=== PATIENT | female | born 1960 | race Asian ===

== ENCOUNTER 2024-09-08 13:58 | Inpatient (IN) | payer BC, SELFPAY ==
[2024-09-07] VITALS (19 sets, daily range): BP systolic 123–197; BP diastolic 70–126; PULSE 75
[2024-09-07 09:18] LABS: Urine Albumin Negative (Neg - Trace); Urine Bilirubin Negative (Negative); Urine Character Clear (Clear); Urine Color Yellow; Urine Glucose Negative (Negative); Urine Ketone Negative (Negative); Urine Leukocyte Negative (Negative); Urine Nitrite Negative (Negative); Urine Occult Blood Negative (Negative); Urine Specific Gravity 1.005 (<1.030); Urine Urobilinogen Negative (Neg - 1+)
[2024-09-07 09:24] LABS: % Basophils 1.2 % (0-2); % Eosinophils 1.9 % (0-6); % Immature Granulocytes 0.3 % (0-0.5); % Neutrophils 70.6 % (42.2-75.2); Absolute Basophils 0.1 10^3/uL (0-0.2); Absolute Eosinophils 0.2 10^3/uL (0-0.7); Absolute Monocytes 0.5 10^3/uL (0.1-0.6); Absolute Neutrophils 6.6 10^3/uL (1.4-6.5); Hemoglobin 14.5 g/dL (12.0-16.0); Mean Corp Hgb Conc. 33.7 g/dL (33.0-37.0); Mean Corpuscular Hgb 31.3 pg (27.0-31.0); Mean Corpuscular Volume 92.7 fL (81.0-99.0); Mean Platelet Volume 9.7 fL (7.4-10.4); Nucleated Red Blood Cells % 0 %; Platelet Count 245 10^3/uL (130-400); Red Blood Cell Count 4.64 10^6/uL (4.20-5.40); Red Cell Dist. Width 12.5 % (11.5-14.5); White Blood Cell Count 9.3 10^3/uL (4.8-10.8)
[2024-09-07 09:36] LABS: Blood Urea Nitrogen 13 mg/dl (7-17); Calcium 9.5 mg/dl (8.4-10.2); Carbon Dioxide 23 mmol/L (22-30); Chloride 107 mmol/L (98-107); Glucose 112 mg/dl (70-99); Sodium 141 mmol/L (135-145); eGFR > 60.00
[2024-09-07 09:44] LABS: Troponin I < 0.012 ng/ml
--- NOTE | 2024-09-07 10:17 | ED.GENMED ---
History of Present Illness
General
Chief Complaint: Dizziness
Source: patient
Exam Limitations: none
Time Seen by Provider: 09/07/24 09:47
Nursing documentation reviewed up to this point in time: agreed with
History of Present Illness
History of Present Illness:
64-year-old female presenting to the emergency department today with concerns of 3 days of intermittent room spinning dizziness that proceeded an upper respiratory infection she had over the past week or so. Denies any chest pain shortness of
breath symptoms improved when sitting still. Has been able to walk and went off balance when doing so. Denies similar symptoms in the past. No numbness weakness neck pain.
Review of Systems
Review of Systems
Allergies reviewed?: Yes
All Other Systems: ROS reviewed and negative except as documented in HPI and ROS
Phy Exam
Physical Exam
Physical Exam:
GENERAL: Alert , in no apparent distress
EYE: pupils equal and reactive
NECK: Supple, no significant adenopathy.
ENT: o/p clr, mmm.
CARDIAC: Regular rate and rhythm .
LUNGS: Clear breath sounds bilaterally, no acute respiratory distress, no wheezes/rales/rhonchi
ABDOMEN: Soft, without focal tenderness, no r/g, no cvat
NEUROLOGICAL: Alert and oriented, no focal neuro deficits 5 out of 5 upper and lower extremity strength normal finger-nose and [id number] no pronator drift. No nystagmus
SKIN: Warm and dry, skin intact.
MUSCULOSKELETAL: No edema, well perfused.
PSYCH: Normal and appropriate interaction.
Course
Orders/Labs/Results
Orders:
Orders
09/07/24 09:02
Electrocardiogram (*1) Urgent
Reason for Study: Chest Pain
EKG- Treatment ONCE
09/07/24 09:04
Basic Metabolic Panel Urgent
Complete Blood Count/With Diff Urgent
Troponin I Urgent
Urinalysis Reflex To Culture Urgent
Date Specimen was Collected: 09/07/24
Time Specimen was Collected: 09:03
09/07/24 10:15
Meclizine [Antivert] 25 mg PO NOW STA
Pt Eval And Treat Urgent
Activity Level: Ambulate
09/07/24 12:23
CT Head W/o Iv Contrast Urgent
Comment:
Reason For Exam: left sided coordination issues
09/07/24 12:37
Labetalol HCl [Trandate] 10 mg IV NOW STA
09/07/24 15:13
Aspirin 325 mg PO NOW STA
Clopidogrel Bisulfate [Plavix] 300 mg PO NOW STA
Abnormal Lab Results
09/07/24
09:04
MCH 31.3 H pg
(27.0-31.0)
Absolute Neuts (auto) 6.6 H 10^3/uL
(1.4-6.5)
Creatinine 0.5 L mg/dL
(0.6-1.0)
Glucose 112 H mg/dl
(70-99)
09/07/24 09:04
09/07/24 09:04
Vital Signs
Initial and Last Documented VS:
Initial Vital Signs
Pulse Resp Pulse Ox
82 18 98
09/07/24 08:59 09/07/24 08:59 09/07/24 08:59
Last Documented Vital Signs
Pulse Resp BP Pulse Ox
62 16 123/77 97
09/07/24 13:15 09/07/24 13:15 09/07/24 13:15 09/07/24 13:15
MDM/Problems Addressed
MDM/Problems Addressed:
64-year-old female presenting to the emergency department today with concerns of room spinning dizziness only with ambulation intermittently over the past 3 days symptoms improved at rest did have an upper respiratory symptom week. On arrival vital
signs are normal patient in no distress at rest no reproducible nystagmus normal labs normal urinalysis. EKG without specific emergent findings. Patient able to stand up walk go to the bathroom get changed on her own without assistance.
*Critical Care Note
Total Time (30-74mins, 75-104mins- exclusive of procedures): Not Applicable
Update Note
Update Note:
1500: Patient reassessed after meclizine and rest claims to still have the feelings of being off balance and trouble with coordination she was reexamined with the left upper extremity had some difficulty with [id number] compared to the right
this has been present the same timeframe of feeling off balance concerning this plan to discuss with neurology for potential additional assessment acutely.
Case discussed with neuro they recommend MRI MRI patient will be admitted loading dose of Plavix given as well as aspirin
ED Attending Note
-
Portions of this chart may have been created with voice recognition software.� Occasional wrong word or��sound alike� substitutions may have occurred due to the inherent limitations of voice recognition software.
Discharge Plan
Departure
Patient Disposition: Admit
Date of Disposition: 09/07/24
Time of Disposition: 15:23
Admit to: Telemetry
Admit to doctor: Chloéy
Presentation/result/management discussed w/ accepting MD/DO: Hospitalist
Patient with high blood pressure during this ER visit?: No
Condition: Fair
Covid-19: Not Applicable
Discharge Problem:
Ataxia
Referrals:
NONE,* [Family Provider] -
Interventions
Interventions:
*Risk Screen - Suicide Last Done: 09/07/24 11:33
*General Assessment Last Done: 09/07/24 11:33
*Neglect/Abuse Screening Last Done: 09/07/24 11:33
*ED COVID-19 Vaccine History Last Done: 09/07/24 11:33
ED- Neurological Assessment Last Done: 09/07/24 11:33
ED- Cardiac Assessment Last Done: 09/07/24 11:33
ED Swallowing Screen Last Done: 09/07/24 11:00
Discharge Date and Time
Print Language: ARABIC
[2024-09-07] MEDS: ANTIVERT 25 MG PO (11:05)
[2024-09-07] MEDS: TRANDATE 10 MG IV (12:45)
--- NOTE | 2024-09-07 15:37 | HPS.HSE ---
Addendum entered and electronically signed by Roshan Wheeler MD 09/07/24 16:17:
I saw and examined the patient.
The TAN ROOM SUPERVISOR or PA's note was reviewed and I agree with the note.
Comment:
64F Rt handed , current smoker No PMH pw slurred speech, balance dysfunction:
Further eval suggestive of
Ataxia, high clinical concern for posterior circulation stroke
- Brain MRI with Head/Neck MRA
- Start DAPL
- Start atorvastatin
- Check FLP an HgbA1c
- Neuro consult
Uncontrolled Hypertension/ HTN encephalopathy - reolved n
- BP improved after dose of labetalol given in ED
- Continue hydralazine PRN
- Permissive BP goal up to 165/100
Current smoker
- cessation of smoking strongly advised
DVT proph: SCDs
Code Status: Full Code
IP TLM
Original Note:
Family Physician
-
Family Physician: * NONE
Chief Complaint
-
Difficulty Walking
History of Present Illness
Patient is a 64 y/o female with no known past medical history who presents with difficulty walking x 3 days. Patient reports when she walks she 'walks like she's drunk'. Her roommate noted yesterday that her speech seems a little different than
usual. She denies focal numbness, tingling or weakness.
Medical History
Past Medical History
Past Medical History: Reports None
Past Surgical History: Reports None
Social History
Tobacco: Smoker (1 PPD)
Alcohol: Occasional
Family History
Family History: Not pertinent
Allergies / Home Medications
Allergies reflects when Allergies were last updated in [employer].
Home Medications with original date entered in [employer]
Allergy/Medication List:
Allergies
Allergy/AdvReac Type Severity Reaction Status Date / Time
No Known Allergies Allergy Unverified 09/07/24 09:00
Home Medications
cholecalciferol (vitamin D3) 25 mcg (1,000 unit) tablet (Vitamin D3) 25 mcg PO DAILY 09/07/24
cyanocobalamin (vitamin B-12) 1,000 mcg tablet 1,000 mcg PO DAILY 09/07/24
magnesium oxide 400 mg PO DAILY 09/07/24
Review of Systems
-
A 12 point ROS was completed and negative except as noted: Yes
Constitutional: Denies Fever or Chills
Respiratory: Denies Cough or Trouble Breathing
Cardiac: Denies Chest Pain or Palpitations
Physical Exam
Vital Signs
Vital Signs
Pulse Resp BP Pulse Ox
62 16 123/77 97
09/07/24 13:15 09/07/24 13:15 09/07/24 13:15 09/07/24 13:15
Physical Exam
General: Comfortable and Conversant
HEENT: Anicteric and Moist mucous membranes
Respiratory: Clear and Non Labored Respirations
Cardiac: S1/S2 and Regular Rhythm
GI: Soft and Non Tender
Rectal: Deferred by Provider
Musculoskeletal: No Clubbing, No Cyanosis and No Edema
Skin: Warm and Dry
Neuro: Awake, Alert, Oriented and Other (Difficulty with Finger to Nose on the Left; Slight Pronator Drift on the Left)
Psych: Calm
Laboratory Results
-
09/07/24 09:04
09/07/24 09:04
Laboratory Results
Total Bilirubin Cancelled 09/07/24 09:04
AST Cancelled 09/07/24 09:04
ALT Cancelled 09/07/24 09:04
Alkaline Phosphatase Cancelled 09/07/24 09:04
Troponin I < 0.012 ng/ml 09/07/24 09:04
Data Reviewed
-
CT Scan: Report Reviewed by me
Lab Data: Labs Reviewed by me
Impression/Plan
-
Ataxia, high clinical concern for posterior circulation stroke
-Consult Neurology
-Check Brain MRI with Head/Neck MRA
-Start aspirin and Plavix
-Start atorvastatin
-Check FLP an HgbA1c
Uncontrolled Hypertension
-BP improved after dose of labetalol given in ED
-Continue hydralazine PRN
Tobacco Use Disorder
-Offered nicotine patch which patient declined
-Encouraged smoking cessation
DVT proph: SCDs
Code Status: Full Code
[2024-09-07] MEDS: ASPIRIN 325 MG PO (16:06)
[2024-09-07] MEDS: PLAVIX 300 MG PO (16:06)
--- NOTE | 2024-09-07 16:22 | W.PN.UPDATE ---
Addendum entered and electronically signed by Roshan Wheeler MD 09/07/24 19:27:
Wrong H & P ; Please scratch
<del>This</del> <del>note</del> <del>serves</del> <del>as</del> <del>an</del> <del>addendum</del> <del>to</del> <del>the</del> <del>H&P</del> <del>by</del> <del>compression molding machine tender</del> <del>MARY</del>
<del>Soheila</del> <del>MARIS</del>
<del>HPI</del>
<del>74-year-old</del> <del>male</del> <del>with</del> <del>a</del> <del>past</del> <del>medical</del> <del>history</del> <del>of</del> <del>chronic</del> <del>HFrEF,</del> <del>severe</del> <del>aortic</del> <del>stenosis,</del> <del>PVD,</del>
<del>history</del> <del>of</del> <del>COPD,</del> <del>former</del> <del>tobacco</del> <del>smoker</del> <del>and</del> <del>hyperlipidemia</del> <del>who</del> <del>was</del> <del>just</del> <del>discharged</del> <del>from</del>
<del>[facility]</del> <del>08/21/2024,</del> <del>being</del> <del>evaluated</del> <del>for</del> <del>TAV</del>
<del>via</del> <del>EMS</del> <del>for</del> <del>evaluation</del> <del>of</del> <del>shortness</del> <del>of</del> <del>breath</del> <del>since</del> <del>last</del> <del>night.</del> <del>sob</del> <del>worse</del> <del>with</del>
<del>exertion.</del> <del>patient</del> <del>complaining</del> <del>of</del> <del>mid</del> <del>sternum</del> <del>chest</del> <del>pain,</del> <del>which</del> <del>is</del> <del>non</del> <del>radiating</del> <del>and</del> <del>non</del>
<del>exertional.</del> <del>denied</del> <del>cough,</del> <del>runny</del> <del>nose,</del> <del>congestion.</del>
<del>PHX;</del> <del>see</del> <del>above</del>
<del>Reviewed</del> <del>VS:</del>
<del>Vital</del> <del>Signs</del>
<del>Pulse</del> <del>Resp</del> <del>BP</del> <del>Pulse</del> <del>Ox</del>
<del>62</del> <del>16</del> <del>123/77</del> <del>97</del>
<del>09/07/24</del> <del>13:15</del> <del>09/07/24</del> <del>13:15</del> <del>09/07/24</del> <del>13:15</del> <del>09/07/24</del> <del>13:15</del>
<del>PE</del>
<del>Gen:</del> <del>No</del> <del>Apparent</del> <del>Distress,</del> <del>on</del> <del>NC</del> <del>O2</del> <del>3</del> <del>L</del>
<del>HEENT:</del> <del>Moist</del> <del>mucous</del> <del>membranes</del> <del>and</del> <del>Atraumatic</del>
<del>Neck:</del> <del>supple</del>
<del>Lungs:</del> <del>symmetric</del> <del>AE,</del> <del>decreased</del> <del>AE</del> <del>,</del> <del>Not</del> <del>wheezy</del>
<del>Cor:</del> <del>S1/S2</del> <del>and</del> <del>RRR</del> <del>No</del> <del>Murmur</del>
<del>Abdomen:</del> <del>Soft,</del> <del>Non</del> <del>Tender,</del> <del>Non</del> <del>Distended</del> <del>and</del> <del>Normal</del> <del>Bowel</del> <del>Sounds</del>
<del>COMMUNICATIONS AND SIGNALS SUPERVISOR:</del> <del>AAO3</del>
<del>MS:</del> <del>No</del> <del>Edema</del>
<del>Psych:</del> <del>Calm</del>
<del>Abnormal</del> <del>Lab</del> <del>Results</del>
<del>01/03/25</del>
<del>09:04</del>
<del>MCH</del> <del>31.3</del> <del>H</del>
<del>Absolute</del> <del>Neuts</del> <del>(auto)</del> <del>6.6</del> <del>H</del>
<del>Creatinine</del> <del>0.5</del> <del>L</del>
<del>Glucose</del> <del>112</del> <del>H</del>
<del>CTC</del> <del>PE</del> <del>study</del>
<del>New</del> <del>left</del> <del>upper</del> <del>and</del> <del>lower</del> <del>lobe</del> <del>findings</del> <del>probably</del> <del>developing</del> <del>pneumonia</del> <del>considering</del> <del>the</del> <del>acute</del>
<del>development.</del>
<del>Repeat</del> <del>exam</del> <del>in</del> <del>3-4</del> <del>weeks</del> <del>recommended</del> <del>after</del> <del>treatment.</del>
<del>New</del> <del>mild</del> <del>right</del> <del>upper</del> <del>lobe</del> <del>atelectasis.</del>
<del>CXR</del>
<del>Mildly</del> <del>improved</del> <del>left</del> <del>suprahilar</del> <del>and</del> <del>right</del> <del>infrahilar</del> <del>findings</del> <del>suggesting</del> <del>pneumonia.</del>
<del>Stable</del> <del>right</del> <del>upper</del> <del>lobe</del> <del>atelectasis</del> <del>versus</del> <del>scarring.</del>
<del>ASSESSMENT</del> <del>&</del> <del>PLAN</del>
<del>Acute</del> <del>on</del> <del>chronic</del> <del>RF</del> <del>due</del> <del>to</del> <del>PNA</del> <del>@</del> <del>TRINO</del> <del>presumed</del> <del>CAP</del>
<del>Afebrile.</del> <del>Nl</del> <del>WCC</del>
<del>-</del> <del>check</del> <del>PCT</del>
<del>-</del> <del>agree</del> <del>with</del> <del>IV</del> <del>CFTX</del> <del>and</del> <del>PO</del> <del>Doxy</del>
<del>-</del> <del>Titrate</del> <del>O2</del> <del>;</del> <del>Goal</del> <del>PO</del> <del>></del> <del>92</del>
<del>COPD</del> <del>flare</del> <del>in</del> <del>setting</del> <del>of</del> <del>PNA</del>
<del>Chr</del> <del>Home</del> <del>O2</del> <del>dependent</del> <del>COPD/Emphysema</del>
<del>-</del> <del>IV</del> <del>ABx</del> <del>as</del> <del>above</del>
<del>-</del> <del>IV</del> <del>Decadron</del> <del>4mg</del> <del>Q12H</del>
<del>-</del> <del>supplemental</del> <del>O2</del> <del>to</del> <del>keep</del> <del>sat</del> <del>>92;</del> <del>wean</del> <del>as</del> <del>tolerated</del>
<del>Elevated</del> <del>Trop</del> <del>likely</del> <del>demand</del> <del>ischemia</del>
<del>Reports</del> <del>burning</del> <del>Chest</del>
<del>-</del> <del>trend</del> <del>TPNI</del>
<del>Severe</del> <del>aortic</del> <del>stenosis</del>
<del>1230/24</del> <del>Echo;</del>
<del>Calcific</del> <del>aortic</del> <del>valve</del> <del>with</del> <del>moderate</del> <del>to</del> <del>severe</del> <del>low-flow</del> <del>low</del> <del>gradient</del> <del>aortic</del> <del>stenosis.</del>
<del>Peak/mean</del> <del>gradients</del> <del>across</del> <del>the</del> <del>aortic</del> <del>valve</del> <del>are</del> <del>62/35</del> <del>mmHg.</del> <del>Moderate</del> <del>aortic</del> <del>regurgitation.</del>
<del>-</del> <del>Valve</del> <del>area</del> <del>1</del> <del>cm�</del>
<del>-</del> <del>due</del> <del>for</del> <del>TAVR</del> <del>next</del> <del>week</del>
<del>Anemia</del> <del>likely</del> <del>from</del> <del>chronic</del> <del>disease</del>
<del>-</del> <del>Hemoglobin</del> <del>stable</del> <del>at</del> <del>11.9</del>
<del>-</del> <del>No</del> <del>active</del> <del>bleeding</del>
<del>Hypokalemia</del> <del>likely</del> <del>from</del> <del>diuretics.</del>
<del>-K3.3</del>
<del>-Supplemented</del> <del>with</del> <del>IV</del> <del>KCL</del>
<del>-</del> <del>f/u</del> <del>K</del> <del>in</del> <del>AM</del>
<del>Elevated</del> <del>Trop</del> <del>likely</del> <del>demand</del> <del>ischemia</del>
<del>-</del> <del>Trop</del> <del>0.049,</del>
<del>-</del> <del>Denies</del> <del>CP</del>
<del>-</del> <del>to</del> <del>trend</del> <del>TPNI</del>
<del>HX</del> <del>Hypotension,</del> <del>suspected</del> <del>cardiogenic</del>
<del>HX</del> <del>Chr</del> <del>HFrEF</del>
<del>HX</del> <del>Cardiomyopathy,</del> <del>EF</del> <del>45%</del>
<del>CAD</del> <del>Status</del> <del>post</del> <del>left</del> <del>main</del> <del>stent</del> <del>placement</del> <del>08/17/2024</del>
<del>HX</del> <del>COPD</del> <del>(on</del> <del>Breztri</del> <del>at</del> <del>home)</del>
<del>Peripheral</del> <del>arterial</del> <del>disease</del>
<del>Hypereosinophilia</del> <del>(absolute</del> <del>eosinophil</del> <del>count:</del> <del>2100)</del>
<del>Former</del> <del>tobacco</del> <del>smoker</del> <del>(quit</del> <del>06/2019</del> <del>with</del> <del>>96-15-zzgt-year</del> <del>history)</del>
<del>History</del> <del>of</del> <del>AAA,</del> <del>peripheral</del> <del>vascular</del> <del>disease</del>
<del>DVT</del> <del>Px:</del> <del>SQH</del>
<del>Full</del> <del>code</del>
<del>IP</del> <del>TLM</del>
Original Note:
Update Note
Progress Note Update
This note serves as an addendum to the H&P by compression molding machine tender MARY
Soheila POLLOCK
HPI
74-year-old male with a past medical history of chronic HFrEF, severe aortic stenosis, PVD, history of COPD, former tobacco smoker and hyperlipidemia who was just discharged from [facility] 08/21/2024, being evaluated for TAV
via EMS for evaluation of shortness of breath since last night. sob worse with exertion. patient complaining of mid sternum chest pain, which is non radiating and non exertional. denied cough, runny nose, congestion.
PHX; see above
Reviewed VS:
Vital Signs
Pulse Resp BP Pulse Ox
62 16 123/77 97
09/07/24 13:15 09/07/24 13:15 09/07/24 13:15 09/07/24 13:15
PE
Gen: No Apparent Distress, on NC O2 3 L
HEENT: Moist mucous membranes and Atraumatic
Neck: supple
Lungs: symmetric AE, decreased AE , Not wheezy
Cor: S1/S2 and RRR No Murmur
Abdomen: Soft, Non Tender, Non Distended and Normal Bowel Sounds
COMMUNICATIONS AND SIGNALS SUPERVISOR: AAO3
MS: No Edema
Psych: Calm
Abnormal Lab Results
09/07/24
09:04
MCH 31.3 H
Absolute Neuts (auto) 6.6 H
Creatinine 0.5 L
Glucose 112 H
CTC PE study
New left upper and lower lobe findings probably developing pneumonia considering the acute development.
Repeat exam in 3-4 weeks recommended after treatment.
New mild right upper lobe atelectasis.
CXR
Mildly improved left suprahilar and right infrahilar findings suggesting pneumonia.
Stable right upper lobe atelectasis versus scarring.
ASSESSMENT & PLAN
Acute on chronic RF due to PNA @ TRINO presumed CAP
Afebrile. Nl WCC
- check PCT
- agree with IV CFTX and PO Doxy
- Titrate O2 ; Goal PO > 92
COPD flare in setting of PNA
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
- IV ABx as above
- IV Decadron 4mg Q12H
- supplemental O2 to keep sat >92; wean as tolerated
Elevated Trop likely demand ischemia
Reports burning Chest
- trend TPNI
Severe aortic stenosis
09/03/24 Echo;
Calcific aortic valve with moderate to severe low-flow low gradient aortic stenosis.
Peak/mean gradients across the aortic valve are 62/35 mmHg. Moderate aortic regurgitation.
- Valve area 1 cm�
- due for TAVR next week
Anemia likely from chronic disease
- Hemoglobin stable at 11.9
- No active bleeding
Hypokalemia likely from diuretics.
-K3.3
-Supplemented with IV KCL
- f/u K in AM
Elevated Trop likely demand ischemia
- Trop 0.049,
- Denies CP
- to trend TPNI
HX Hypotension, suspected cardiogenic
HX Chr HFrEF
HX Cardiomyopathy, EF 45%
CAD Status post left main stent placement 08/17/2024
HX COPD (on Breztri at home)
Peripheral arterial disease
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
Former tobacco smoker (quit 06/2019 with >72-26-lypp-year history)
History of AAA, peripheral vascular disease
DVT Px: SQH
Full code
IP TLM
--- NOTE | 2024-09-07 18:45 | PTCARENOTE ---
patient arrived to floor from ER via bed. denies complaints, vss, telemetry maintained, NIH 0, oriented to room and use of call kumar, will continue to monitor.
[2024-09-08] VITALS (9 sets, daily range): BP systolic 115–209; BP diastolic 70–122; PULSE 73; O2SAT 97
[2024-09-08 07:00] LABS: Hematocrit 39.4 % (37.0-47.0); Hemoglobin 13.2 g/dL (12.0-16.0); Mean Corp Hgb Conc. 33.5 g/dL (33.0-37.0); Mean Corpuscular Hgb 31.4 pg (27.0-31.0); Mean Corpuscular Volume 93.6 fL (81.0-99.0); Platelet Count 260 10^3/uL (130-400); Red Blood Cell Count 4.21 10^6/uL (4.20-5.40); Red Cell Dist. Width 12.6 % (11.5-14.5)
[2024-09-08 07:35] LABS: Blood Urea Nitrogen 18 mg/dl (7-17); Calcium 9.5 mg/dl (8.4-10.2); Carbon Dioxide 29 mmol/L (22-30); Chloride 104 mmol/L (98-107); Estimated Creatinine Clearance 59 ml/min; Glucose 109 mg/dl (70-99); HDL Cholesterol 46 mg/dl; LDL Cholesterol, Calculated 152 mg/dl; Magnesium 2.2 mg/dl (1.6-2.3); Potassium 4.1 mmol/L (3.5-5.1); Sodium 143 mmol/L (135-145); Total Cholesterol 219 mg/dl (50-199); Triglyceride 106 mg/dl (10-149); Very Low Density Lipoprotein 21 mg/dl (0-30); eGFR > 60.00
[2024-09-08] MEDS: LOW STRENGTH ASPIRIN 81 MG PO (10:23)
[2024-09-08] MEDS: PLAVIX 75 MG PO (10:23)
[2024-09-08] MEDS: APRESOLINE 5 MG IV (13:17)
[2024-09-08] MEDS: PROCARDIA XL (EXTENDED RELEASE) 60 MG PO (13:51)
--- NOTE | 2024-09-08 13:56 | W.PN.HOSP.TC ---
Today's Communication/Plan
-
Start BP meds
ASA/PLAVIX
Monitor on tele
PT/OT
Assessment / Plan
Assessment / Plan
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
-Consult Neurology
-MR brain noted. MRA head and neck with No focal hemodynamically significant stenosis, aneurysm or occlusion.
-Start aspirin and Plavix for 21days then stop aspirin. d/w with neurology agrees with plan.
-Start atorvastatin
-TC at 219. LDL 152. A1C at 6.
-PT/OT/Speech therapy.
-ECHO pending. monitor on telemetry
Uncontrolled Hypertension likely leading to CVA
HTN emergency-poa
-Start po medication procardia 60mg. Increase dose if needed.
-IV labetalol prn.
-strict blood pressure control.
Tobacco Use Disorder
-Offered nicotine patch which patient declined
-Encouraged smoking cessation
DVT proph: SCDs
Code Status: Full Code
Anticipated Discharge: Within 24 hours
Subjective/Interval History
-
Date of Service: September 08, 2024
states of dizziness and imbalance of walking
eating outside sandwich
Objective Data
-
Labs:
Laboratory Results
09/08/24
06:14
WBC 9.0
Hgb 13.2
Hct 39.4
Plt Count 260
Sodium 143
Potassium 4.1
Chloride 104
Carbon Dioxide 29
BUN 18 H
Creatinine 0.8
Glucose 109 H
Calcium 9.5
Vital Signs:
Vital Signs
Temp Pulse Resp BP Pulse Ox
98.1 F 73 19 182/85 97
09/08/24 12:08 09/08/24 12:08 09/08/24 12:08 09/08/24 12:08 09/08/24 12:08
I&O
09/07/24 09/08/24 09/09/24
06:59 06:59 06:59
Intake Total 240 / 240
Balance 240 / 240
Physical Exam
-
General: Well Developed and No Apparent Distress
HEENT: Normocephalic, Atraumatic and Moist Mucous Membranes
Respiratory: Clear to Auscultation
Cardiac: Regular Rhythm and S1/S2; Negative Murmur, Rub or Gallop
GI: Soft, Nontender, Nondistended and Normal Bowel Sounds; Negative Organomegaly
Rectal: Deferred by Provider
Musculoskeletal: No Clubbing, No Cyanosis and No Edema
Skin: Negative Rash
Neuro: Awake, Alert and Oriented; Negative Tremors, Sedated, No Sensory Deficits, Slurred Speech or Facial Droop
Psych: Calm
Data Reviewed
-
Total Time Spent with Patient (in minutes): 55
--- NOTE | 2024-09-08 13:59 | PTOTSP ---
Speech Therapy Evaluation:
Pt exhibits oropharyngeal swallow that is within functional limits at bedside, however remains at an increased risk of aspiration and related complications given acute CVA in periventricular region. Pt passed 3oz swallow screen. WBC WNL. No CXR
completed at this time.
Additionally, pt presents with mild dysarthria as characterized by reduced articulatory precision. Despite, this pt remains 100% intelligible in conversation. Would recommend consideration of further assessment and to educate pt on speech
strategies.
Recommend:
1. Continue IDDSI Level 7 (regular) solids and thin liquids
2. Medications as tolerated
3. General aspiration precautions
4. METAL FLOW COORDINATOR to follow re: tolerance of current diet level, further speech assessment/education/intervention
--- NOTE | 2024-09-08 17:35 | PTCARENOTE ---
Pt received education about importance of taking Lipitor with stroke. Pt verbalized an understanding. Pt encouraged to go onto the [place] website, [place] [employer] however she stated she has friends who had bad se
with it and is refusing this medication at this time. however she agreed to change her diet to low fat
[2024-09-09 03:29] VITALS: BP 127/75
[2024-09-09 08:30] VITALS: BP 148/90; BP 160/113; BP 175/105; PULSE 80; PULSE 88; O2SAT 98
[2024-09-09] MEDS: PLAVIX 75 MG PO (08:52)
[2024-09-09] MEDS: PROCARDIA XL (EXTENDED RELEASE) 60 MG PO (08:52)
[2024-09-09] MEDS: LOW STRENGTH ASPIRIN 81 MG PO (08:52)
[2024-09-09 09:10] VITALS: BP 130/85
[2024-09-09 09:28] VITALS: BP 148/90; BP 160/113; BP 175/105; PULSE 81; PULSE 86; O2SAT 98
[2024-09-09 11:11] VITALS: BP 140/92; BP 142/100; BP 160/90
[2024-09-09 12:45] VITALS: BP 119/85
--- NOTE | 2024-09-09 13:29 | W.PN.HOSP.TC ---
Today's Communication/Plan
-
asa/plavix
dc home
outpatient therapy
Assessment / Plan
Assessment / Plan
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
-Consult Neurology
-MR brain noted. MRA head and neck with No focal hemodynamically significant stenosis, aneurysm or occlusion.
-Start aspirin and Plavix for 21days then stop aspirin. d/w with neurology Dr. David Morley who agrees with plan.
-Start atorvastatin. Convince patient and she is agreeable to taking anticholesterol medication.
-TC at 219. LDL 152. A1C at 6.
-PT/OT/Speech therapy. Outpatient therapy. No events were noted on telemetry. No arrhythmia was noted.
-Patient eager to go home. Does not want to stay for echo tomorrow. Recommend outpatient echocardiogram.
Uncontrolled Hypertension likely leading to CVA
HTN emergency-poa
-Start po medication procardia 60mg. Increase dose if needed.
-IV labetalol prn.
-strict blood pressure control. Blood pressure improving.
Tobacco Use Disorder
-Offered nicotine patch which patient declined
-Encouraged smoking cessation
DVT proph: SCDs
Code Status: Full Code
More than 30 minutes spent in discharge including
Final examination of the patient
Summarizing hospital stay
Instructions for continuing care to all relevant caregivers
Preparation of discharge records, prescriptions, and referral forms
Total time spent (in minutes): 48
[address] neurolog[address] David Morley. Official consult was placed on admission but note pending. d/w with him okay to dc with plan as above noted.
Anticipated Discharge: Today
Subjective/Interval History
-
Date of Service: September 09, 2024
denies any headache or vision problems
seeing walking around in room without any difficulty
Objective Data
-
Vital Signs:
Vital Signs
Temp Pulse Resp BP Pulse Ox
97.9 F 90 19 119/85 96
09/09/24 12:45 09/09/24 12:45 09/09/24 12:45 09/09/24 12:45 09/09/24 12:45
I&O
09/08/24 09/09/24 09/10/24
06:59 06:59 06:59
Intake Total 240 / 240 1740 / 1740
Balance 240 / 240 1740 / 1740
Physical Exam
-
General: Well Developed and No Apparent Distress
HEENT: Normocephalic, Atraumatic and Moist Mucous Membranes
Respiratory: Clear to Auscultation
Cardiac: Regular Rhythm and S1/S2; Negative Murmur, Rub or Gallop
GI: Soft, Nontender, Nondistended and Normal Bowel Sounds; Negative Organomegaly
Rectal: Deferred by Provider
Musculoskeletal: No Clubbing, No Cyanosis and No Edema
Skin: Negative Rash
Neuro: Awake, Alert, Oriented and Other (Gait normal. ); Negative Tremors, Sedated, No Sensory Deficits, Slurred Speech or Facial Droop
Psych: Calm
--- NOTE | 2024-09-09 13:40 | W.DCSUMMARY ---
Discharge Summary
Discharge Data
Date of Admission: 09/08/24
Date of Discharge: 09/09/24
-
Pending Results: No
Hospital Course
64-year-old female past medical history of tobacco use disorder, undiagnosed hypertension who is presenting with ataxia. Started on aspirin and Plavix and patient was eval by neurology. MR brain w/ Moderate-sized nonhemorrhagic acute/subacute
infarct in the right periventricular region/centrum semiovale. No focal hemodynamically significant stenosis, aneurysm or occlusion. MRA head and neck with No focal hemodynamically significant stenosis, aneurysm or occlusion. Start aspirin and
Plavix for 21days then stop aspirin. d/w with neurology Dr. David Morley who agrees with plan. Patient also started on aspirin. Patient was counseled complete tobacco cessation. Patient blood pressure significantly elevated and started on Procardia.
Patient blood pressure stabilized. Patient was by PT and OT recommend outpatient therapy. Patient states she wanted to go home and not interested in the hospital for echocardiogram. Recommend outpatient echo with primary doctor. No events were
noted on telemetry. Patient was discharged home with outpatient follow-up with primary doctor and neurologist.
Discharge Plan
-
Patient Disposition: Home (Routine Discharge)
Discharge Diagnosis/Procedures: STROKE
Hyperlipidemia
HTN emergency
Condition: Fair
Diet: Low Fat and Low Cholesterol
Activity: With assistance and As tolerated
Driving Restrictions: Not until seen by your Dr
Others Tests: Recommend transthoracic echocardiogram with primary doctor.
Other Services: PT
Activity Restrictions/Additional Instructions:
Continue aspirin and Plavix for 21days then stop aspirin and continue plavix.
Referrals:
Rizwan Antoine MD [Active] - in one to two months
NONE,* [Family Provider] - in less than 1 week
Prescriptions:
New
atorvastatin 40 mg Tablet
40 mg PO QPM 30 Days Qty: 30 0RF
clopidogrel 75 mg Tablet
75 mg PO DAILY Qty: 30 0RF
nifedipine 60 mg Tablet Extended Release
60 mg PO DAILY 30 Days Qty: 30 0RF
Continued
cyanocobalamin (vitamin B-12) 1,000 mcg Tablet
1,000 mcg PO DAILY
cholecalciferol (vitamin D3) [Vitamin D3] 25 mcg (1,000 unit) Tablet
25 mcg PO DAILY
magnesium oxide 400 mg magnesium Tablet
400 mg PO DAILY
aspirin
81 mg PO DAILY 19 Days Qty: 0 0RF
Discharge Orders:
Discharge Patient (As Directed); Ordered 09/09/24
Ordered By: Temo Gusman
Discharge Date and Time
Print Language: KHMER
--- NOTE | 2024-09-09 14:22 | CON.NEURO ---
Neuro Assessment/Plan
Assessment
MRI brain images rev'd, acute lacunar stroke right centrum semiovale
MRA head/neck with no hemodynamically significant stenosis
HDL 46, LDL 152, HA1c 6.0
Acute lacunar stroke right subcortical, likely microvascular etiology.
Plan
continue ASA 81, continue Plavix 75 for 21 days, continue Lipitor 40
ok to discharge home
Consultation
Order
Date of Consultation: 09/08/24
Requesting Provider: Temo Gusman
Reason for Consult: stroke
Subjective/Objective
Subjective Data
Date of Service: September 08, 2024
seen yesterday, late note
She is a 64 year old woman presenting with 3 days of ataxic gait. Her roommate noted slurred speech the day prior to arrival.
patient denies any weakness or numbness
Objective Data
Vital Signs
Temp Pulse Resp BP Pulse Ox
36.6 C 90 19 119/85 96
09/09/24 12:45 09/09/24 12:45 09/09/24 12:45 09/09/24 12:45 09/09/24 12:45
Lab Results
09/08/24 06:14
09/08/24 06:14
Sodium 143 mmol/L (135-145) 09/08/24 06:14
Potassium 4.1 mmol/L (3.5-5.1) 09/08/24 06:14
BUN 18 mg/dl (7-17) H 09/08/24 06:14
Glucose 109 mg/dl (70-99) H 09/08/24 06:14
Calcium 9.5 mg/dl (8.4-10.2) 09/08/24 06:14
LDL Cholesterol, Calc 152 mg/dl 09/08/24 06:14
Patient Allergies
No Known Allergies Allergy (Unverified 09/07/24 09:00)
Physical Exam
-
AAOx3, mildly dysarthric, language intact
VFF, EOMI, face symmetric
full strength b/l UE/LE
sensation intact to touch/pin
Finger to nose mildly ataxic on the left
Medications
-
Active Medications
Generic Name Dose Route Start Last Admin
Trade Name Freq PRN Reason Stop Dose Admin
Acetaminophen 650 mg 09/07/24 19:10
Acetaminophen 650 Mg Rectal Suppository RECTAL 10/05/24 19:09
Q4HPRN PRN
SAMAYOA, mild pain, or temp >100.4F
Acetaminophen 650 mg 09/07/24 19:10
Acetaminophen 325 Mg Tablet PO 10/05/24 19:09
Q4HPRN PRN
SAMAYOA, mild pain, or temp >100.4F
Aspirin 81 mg 09/08/24 08:00 09/09/24 08:52
Aspirin 81 Mg Chewable Tablet PO 10/06/24 07:59 81 mg
DAILY PAL Administration
Atorvastatin Calcium 40 mg 09/07/24 19:10 09/08/24 17:35
Atorvastatin (Lipitor) 40 Mg Tablet PO 10/05/24 19:09 Not Given
QPM PAL
Clopidogrel Bisulfate 75 mg 09/08/24 08:00 09/09/24 08:52
Clopidogrel 75 Mg Tablet PO 10/06/24 07:59 75 mg
DAILY PAL Administration
Labetalol HCl 10 mg 09/08/24 13:23
Labetalol Hcl 5 Mg/1 Ml (20 Mg/4 Ml) Injection IV 10/06/24 13:22
Q6HPRN PRN
SBP>140
Nifedipine 60 mg 09/09/24 08:00 09/09/24 08:52
Nifedipine 60 Mg Extended Release Tablet PO 10/07/24 07:59 60 mg
DAILY PAL Administration
Home Medications
�Medication �Instructions �Recorded
cholecalciferol (vitamin D3) 25 25 mcg PO DAILY Supplement 09/07/24
mcg (1,000 unit) tablet (Vitamin
D3)
cyanocobalamin (vitamin B-12) 1,000 mcg PO DAILY Supplement 09/07/24
1,000 mcg tablet
magnesium oxide 400 mg PO DAILY Supplement 09/07/24
aspirin 81 mg PO DAILY Blood Clot 09/09/24
Prevention/Tx 19 days ##0
atorvastatin 40 mg tablet 40 mg PO QPM 30 days #30 tabs 09/09/24
clopidogrel 75 mg tablet 75 mg PO DAILY #30 tabs 09/09/24
nifedipine 60 mg tablet,extended 60 mg PO DAILY 30 days #30 tabs 09/09/24
release
--- NOTE | 2024-09-09 15:00 | CM ---
Initial assessment and Case Management Consult completed
Pharmacy verified: [facility] @ [address] [place] [address]
No Family Physician: provided [facility] @ [address] [facility]
Patient lives in a multilevel home with a friend; 3 steps to enter; 12 steps to her bedroom and bath; railing on stairs
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
NO SNF or Home Health utilization History
No DME
PT recommended Outpatient Physical Therapy; requested script from Attending and informed patient's nurse
Plan: Discharge to home; Son here to transport
[2024-09-10 19:08] LABS: Hepatitis C Antibody Negative (Negative)
== END 2024-09-09 15:32 | disposition home or self-care (01) | DRG 64 ==
LOC: 3 WEST ACU 13:58
PROVIDERS: Physician Assistant Medical; ADMITTING PHYSICIAN Internal Medicine; ATTENDING PHYSICIAN Hospitalist; CONSULT PHYSICIAN Psychiatry & Neurology Clinical Neurophysiology; EMERGENCY PHYSICIAN Emergency Medicine
DX: I63.81 Other cerebral infarction due to occlusion or stenosis of small artery (principal); J18.9 Pneumonia, unspecified organism; G93.40 Encephalopathy, unspecified; I50.22 Chronic systolic (congestive) heart failure; J44.0 Chronic obstructive pulmonary disease with (acute) lower respiratory infection; I16.1 Hypertensive emergency; F17.210 Nicotine dependence, cigarettes, uncomplicated; R27.0 Ataxia, unspecified; I11.0 Hypertensive heart disease with heart failure; I35.2 Nonrheumatic aortic (valve) stenosis with insufficiency; D63.8 Anemia in other chronic diseases classified elsewhere; E87.6 Hypokalemia; E78.5 Hyperlipidemia, unspecified; Z79.02 Long term (current) use of antithrombotics/antiplatelets
CPT/HCPCS: 70450; 70544; 70548; 70551; 80048; 80061; 81003; 83036; 83735; 84484; 85025; 85027; 86803; 92610; 93005; 96374; 97163; 97167; 97530; 99285; 99406; A9585

== ENCOUNTER → 2024-09-24 09:01 | Outpatient (REF) | payer BC, SELFPAY | LOC: HWRCS 09:01 | PROVIDERS: ATTENDING PHYSICIAN Student in an Organized Health Care Education/Training Program | DX: I63.9 Cerebral infarction, unspecified (principal) | CPT/HCPCS: 93306 ==

== ENCOUNTER 2024-12-20 08:10 | Inpatient (IN) | payer BC, SELFPAY ==
[2024-12-18] VITALS (12 sets, daily range): BP systolic 105–146; BP diastolic 65–85; PULSE 73–80; BMI 28.9; BMI 27.6
--- NOTE | 2024-12-18 12:03 | ED.GENMED ---
History of Present Illness
<Adrian Crowe DO - Last Filed: 12/18/24 12:07>
General
Chief Complaint: Fainting/Passed Out
Time Seen by Provider: 12/18/24 11:51
<Miguel Villanueva PA-C - Last Filed: 12/18/24 15:03>
General
Source: patient and records
History of Present Illness
History of Present Illness:
64-year-old female with past medical history of CVA in September of this year presenting to the emergency department for evaluation after she reportedly had a syncopal episode at work, patient states she believes she may have felt very hot prior to
syncopized and but does not remember any of the events following. Presently patient states she feels very fatigued and as if she is having some difficulty with word finding. She also feels that her speech is very slow at this time. She is
otherwise denying any headaches, visual changes, focal weakness or numbness, chest pain or shortness of breath, abdominal pain, nausea, vomiting. Patient reports good compliance with her medications although she is not able to tell me what
medication she is currently taking. She states that prior to leaving for work today she felt she was in her usual state of health.
Past History
<Miguel Villanueva PA-C - Last Filed: 12/18/24 15:03>
Past History
ED Past Medical History: CVA
ED Past Surgical History: None
Social History
Tobacco: Non-smoker
Alcohol: None
Drug: None
Personal:
Living: alone
Employment: Employed
Review of Systems
<Miguel Villanueva PA-C - Last Filed: 12/18/24 15:03>
Review of Systems
All Other Systems: ROS reviewed and negative except as documented in HPI and ROS
Phy Exam
<Miguel Villanueva PA-C - Last Filed: 12/18/24 15:03>
Physical Exam
Physical Exam:
GENERAL: Alert , in no apparent distress, yawning and slow to respond to questions but seems to be answering most of the questions appropriately
HEAD: Normocephalic atraumatic
EYE: pupils equal and reactive, 4 mm bilateral, EOMI, no field cuts
NECK: Supple
ENT: o/p clr, mmm.
CARDIAC: Regular rate and rhythm .
LUNGS: Clear breath sounds bilaterally, no acute respiratory distress, no wheezes/rales/rhonchi
ABDOMEN: Soft, without focal tenderness, no r/g, no cvat
NEUROLOGICAL: Alert and oriented, no focal neuro deficits, no facial drooping or slurred speech, questionable dysarthria however difficult to assess given there is no family present and patient does have an accent
SKIN: Warm and dry, skin intact.
MUSCULOSKELETAL: No edema, well perfused.
PSYCH: Normal and appropriate interaction.
Scores
<Adrian Crowe DO - Last Filed: 12/18/24 12:07>
NIH Stroke Score
Level of Consciousness: 0 - Alert
LOC Questions: 0-Answers both correctly
LOC Commands: 0-Performs both correctly
Best Horizontal Gaze: 0-Normal
Visual Rodriguez: 0=Normal, no visual loss
Facial Palsy: 0=Normal, symmetrical
Motor - Right Arm: 0=No drift 10 seconds
Motor - Left Arm: 0=No drift 10 seconds
Motor - Right Le-No drift 5 seconds
Motor - Left Le-No drift 5 seconds
Limb Ataxia: 0-Absent
Sensation: 0-Normal
Best Language: 0-No aphasia
Dysarthria: 1-Mild slurring
Extinction and Inattention: 0-No abnormality
Total Score:: 1
<Miguel Villanueva PA-C - Last Filed: 12/18/24 15:03>
NIH Stroke Score
Level of Consciousness: 0 - Alert
LOC Questions: 0-Answers both correctly
LOC Commands: 0-Performs both correctly
Best Horizontal Gaze: 0-Normal
Visual Rodriguez: 0=Normal, no visual loss
Facial Palsy: 0=Normal, symmetrical
Motor - Right Arm: 0=No drift 10 seconds
Motor - Left Arm: 0=No drift 10 seconds
Motor - Right Le-No drift 5 seconds
Motor - Left Le-No drift 5 seconds
Limb Ataxia: 0-Absent
Sensation: 0-Normal
Best Language: 0-No aphasia
Dysarthria: 1-Mild slurring
Extinction and Inattention: 0-No abnormality
Total Score:: 1
Stroke Thrombolytic & IAT <6 hours
IAT <6 Hr Exclusion Criteria: NIHSS <6
Heart Failure Risk
Heart Failure Risk Score: Not Applicable
Heart Score for Chest Pain Patients
STEMI patient?: Not applicable
Withdrawal Assessment of Alcohol
Withdrawal Assessment Completed?: Not applicable
Course
<Adrian Crowe, DO - Last Filed: 12/18/24 12:07>
Orders/Labs/Results
Orders:
Orders
12/18/24 12:02
Electrocardiogram (*1) Urgent
Reason for Study: Syncope
CT Head W/o Iv Contrast Urgent
Comment:
Reason For Exam: syncope, hx of CVA, slow speech
EKG- Treatment ONCE
Orthostatic VS- Treatment ONCE
12/18/24 12:06
Complete Blood Count/With Diff Urgent
Comprehensive Metabolic Panel Urgent
Magnesium Urgent
TSH Urgent
Troponin I Urgent
12/18/24 14:45
Urinalysis Reflex To Culture Urgent
Abnormal Lab Results
12/18/24
12:06
MCH 31.1 H pg
(27.0-31.0)
Absolute Neuts (auto) 6.6 H 10^3/uL
(1.4-6.5)
BUN 20 H mg/dl
(7-17)
Glucose 140 H mg/dl
(70-99)
ALT 43 H U/L
(0-35)
12/18/24 12:06
12/18/24 12:06
Vital Signs
Initial and Last Documented VS:
Initial Vital Signs
Temp Pulse Resp BP Pulse Ox
97.9 F 70 16 115/72 97
12/18/24 11:48 12/18/24 11:48 12/18/24 11:48 12/18/24 11:48 12/18/24 11:48
Last Documented Vital Signs
Temp Pulse Resp BP Pulse Ox
97.9 F 65 16 115/72 99
12/18/24 11:48 12/18/24 12:45 12/18/24 12:45 12/18/24 11:48 12/18/24 12:45
<Miguel Villanueva PA-C - Last Filed: 12/18/24 15:03>
Orders/Labs/Results
Orders:
Orders
12/18/24 12:02
Electrocardiogram (*1) Urgent
Reason for Study: Syncope
CT Head W/o Iv Contrast Urgent
Comment:
Reason For Exam: syncope, hx of CVA, slow speech
EKG- Treatment ONCE
Orthostatic VS- Treatment ONCE
12/18/24 12:06
Complete Blood Count/With Diff Urgent
Comprehensive Metabolic Panel Urgent
Magnesium Urgent
TSH Urgent
Troponin I Urgent
12/18/24 14:45
Urinalysis Reflex To Culture Urgent
Abnormal Lab Results
12/18/24
12:06
MCH 31.1 H pg
(27.0-31.0)
Absolute Neuts (auto) 6.6 H 10^3/uL
(1.4-6.5)
BUN 20 H mg/dl
(7-17)
Glucose 140 H mg/dl
(70-99)
ALT 43 H U/L
(0-35)
12/18/24 12:06
12/18/24 12:06
Vital Signs
Initial and Last Documented VS:
Initial Vital Signs
Temp Pulse Resp BP Pulse Ox
97.9 F 70 16 115/72 97
12/18/24 11:48 12/18/24 11:48 12/18/24 11:48 12/18/24 11:48 12/18/24 11:48
Last Documented Vital Signs
Temp Pulse Resp BP Pulse Ox
97.9 F 65 16 115/72 99
12/18/24 11:48 12/18/24 12:45 12/18/24 12:45 12/18/24 11:48 12/18/24 12:45
<Miguel Villanueva PA-C - Last Filed: 12/18/24 15:03>
MDM/Problems Addressed
Differential Diagnosis Includes:
Vagal event, cardiac dysrhythmia, orthostasis, dehydration, CVA, intracranial bleeding
MDM/Problems Addressed:
64-year-old female presenting to the emergency department for evaluation following a reportedly witnessed syncopal event, patient questionably had prodromal symptoms prior to but not able to recollect any events just prior to the syncope or after.
Currently stating feels very tired. Patient does states she feels as if she is having word finding difficulty and feels as if her speech may be a little bit slurred. Very difficult to assess this given no current family at the bedside and able to
verify if patient's speech is in fact different. We did score the patient and NIH of 1 however we did not activate the stroke alert due to the patient having a previous stroke within the last 3 months and is not a TNK candidate but we did bring the
patient to CT scan for further evaluation. Will otherwise check labs, EKG, orthostatic vital signs and reassess.
Chronic conditions affecting care: Neurological disorder (Previous CVA)
<Miguel Villanueva PA-C - Last Filed: 12/18/24 15:03>
*Radiology
Radiology exam reviewed: radiology read reviewed
*Pulse Oximetry
Patient hypoxic: no
*EKG
Comparison EKG: no changes
Heart Rate: 69
Rate: normal
Rhythm: sinus and PVC's
Ischemia: no ischemia
*Product Coordinator Interpretation
Rate: normal
Rhythm: sinus
*Critical Care Note
Total Time (30-74mins, 75-104mins- exclusive of procedures): Not Applicable
Data Reviewed
Review of Other/Old Records Reveals: Radiology Studies and Discharge Summary
Source: patient and records
<Miguel Villanueva PA-C - Last Filed: 12/18/24 15:03>
Patient Management
Discussion with other providers: Hospitalist
Escalation/DeEscalation of care consider admission/obs:
Patient CT scan without any acute findings. Previous infarct on head CT noted. Patient has remained hemodynamically stable and lab work is reassuring however when getting the patient up from the bed to have her ambulate she stated she needed to
use the restroom and upon getting up from the bed she stared off into space took a few steps forward and then turned back to get into bed and could not remember that she wanted to use the restroom. Family is now at the bedside and while they state
that patient's speech is normal for her she does appear to be acting differently than her usual self. Given her recent history of stroke combined with her change in mental status and presenting syncope will admit for continued observation and
testing. Hospitalist team accepts for continued evaluation and treatment.
ED Attending Note
<Adrian Crowe DO - Last Filed: 12/18/24 12:07>
ED Attending Note
Patient seen and examined by attending physician: Yes
I performed the substantive portion of visit, reviewed & personally made and approve the management plan that is documented in note by myself or MARY.: Yes
ED Attending Note:
I have seen and evaluated the patient with a [id number] encounter. I have spoken to the advance practicer provider and involved in the medical history, the physical exam, medical decision making.
Evaluation and management service: agree unless noted differently below.
Results interpretation: agree unless noted differently below.
Focused HPI: 64-year-old female presenting with syncopal event. Patient states she felt hot at work. She does not remember the details surrounding the syncope. Patient is slow to respond to answering but states she feels like her speech is slow.
She denies weak, numbness or headache
Physical exam: Sitting in bed comfortably. Patient does have an accent so I cannot 100% evaluate for dysarthria. She has no other stroke findings
Medical Decision Making: Her NIH is 1 based on dysarthria that may or may not exist. I cannot reliably evaluate for her speech with her current accent. Regardless, she is not a great TNK candidate because she had a documented stroke 3 months ago.
Will obtain CT head and basic blood work
<Miguel Villanueva PA-C - Last Filed: 12/18/24 15:03>
-
Portions of this chart may have been created with voice recognition software.� Occasional wrong word or��sound alike� substitutions may have occurred due to the inherent limitations of voice recognition software.
Discharge Plan
Departure
Patient Disposition: Admit
Date of Disposition: 12/18/24
Time of Disposition: 14:46
Presentation/result/management discussed w/ accepting MD/DO: Hospitalist
Patient with high blood pressure during this ER visit?: No
Discharge Problem:
Syncope, Altered mental status
Instructions: Syncope (Fainting) (DC)
Prescriptions:
No Action
cyanocobalamin (vitamin B-12) 1,000 mcg Tablet
1,000 mcg PO DAILY
cholecalciferol (vitamin D3) [Vitamin D3] 25 mcg (1,000 unit) Tablet
25 mcg PO DAILY
magnesium oxide 400 mg magnesium Tablet
400 mg PO DAILY
atorvastatin 40 mg Tablet
40 mg PO QPM 30 Days Qty: 30 0RF
clopidogrel 75 mg Tablet
75 mg PO DAILY Qty: 30 0RF
nifedipine 60 mg Tablet Extended Release
60 mg PO DAILY 30 Days Qty: 30 0RF
aspirin
81 mg PO DAILY 19 Days Qty: 0 0RF
Referrals:
UNKNOWN - PT NOT,INTERVIEWE [Unknown Provider] -
Interventions
Interventions:
*Risk Screen - Suicide Last Done: 12/18/24 11:48
*General Assessment Last Done: 12/18/24 11:48
*Neglect/Abuse Screening Last Done: 12/18/24 11:48
*ED- Fall Risk Assessment Last Done: 12/18/24 11:48
*ED COVID-19 Vaccine History Last Done: 12/18/24 11:48
ED- Cardiac Assessment Last Done: 12/18/24 11:48
ED- Neurological Assessment Last Done: 12/18/24 11:48
Discharge Date and Time
Print Language: AUSTRALIAN
[2024-12-18 12:15] LABS: % Basophils 1.5 % (0-2); % Eosinophils 2.2 % (0-6); % Immature Granulocytes 0.3 % (0-0.5); % Monocytes 4.3 % (1.7-9.3); % Neutrophils 68.7 % (42.2-75.2); Absolute Basophils 0.1 10^3/uL (0-0.2); Absolute Eosinophils 0.2 10^3/uL (0-0.7); Absolute Lymphocytes 2.2 10^3/uL (1.2-3.4); Absolute Monocytes 0.4 10^3/uL (0.1-0.6); Absolute Neutrophils 6.6 10^3/uL (1.4-6.5); Hematocrit 39.5 % (37.0-47.0); Hemoglobin 13.2 g/dL (12.0-16.0); Mean Corp Hgb Conc. 33.4 g/dL (33.0-37.0); Mean Corpuscular Hgb 31.1 pg (27.0-31.0); Mean Corpuscular Volume 93.2 fL (81.0-99.0); Mean Platelet Volume 9.9 fL (7.4-10.4); Nucleated Red Blood Cells % 0 %; Platelet Count 268 10^3/uL (130-400); Red Blood Cell Count 4.24 10^6/uL (4.20-5.40); Red Cell Dist. Width 12.7 % (11.5-14.5); White Blood Cell Count 9.6 10^3/uL (4.8-10.8)
[2024-12-18 12:35] LABS: ALT (SGPT) 43 U/L (0-35); AST (SGOT) 32 U/L (14-36); Albumin 4.7 g/dl (3.5-5.0); Alkaline Phosphatase 100 U/L (38-126); Blood Urea Nitrogen 20 mg/dl (7-17); Calcium 9.6 mg/dl (8.4-10.2); Carbon Dioxide 24 mmol/L (22-30); Chloride 105 mmol/L (98-107); Estimated Creatinine Clearance 66 ml/min; Glucose 140 mg/dl (70-99); Magnesium 2.3 mg/dl (1.6-2.3); Sodium 141 mmol/L (135-145); Total Bilirubin 0.5 mg/dl (0.2-1.3); Total Protein 7.4 g/dl (6.3-8.2); eGFR > 60.00
[2024-12-18 12:39] LABS: Troponin I < 0.012 ng/ml
[2024-12-18 12:59] LABS: TSH 0.93 uIU/ml (0.47-4.68)
--- NOTE | 2024-12-18 14:07 | EDRN ---
Patient denied c/o dizziness with orthostatic vital signs.
--- NOTE | 2024-12-18 14:43 | EDRN ---
Patient assisted to the bathroom. Patient abulated with slight unsteady gait. Half way to the bathroom patient stopped and started to look around and then turned around and started to walk back to her room. Asked patient if she still needed to use
the bathroom. Patient stated 'Oh yeah. That's right' and turned around towards the bathroom. Patient stated 'I can't explain it' when asked how she was feeling. Family stated that the patient is not acting like her normal self. Ricky Villanueva PA-C
notified.
--- NOTE | 2024-12-18 14:49 | HPS.HSE ---
Family Physician
-
Family Physician: NOT KNOW UNKNOWN - PT DOES
Chief Complaint
-
witnessed episode of syncope
History of Present Illness
Ms. Petar Blancas is a 64 yo woman with hx tobacco use, essential HTN, recent admission 09/08-09/09/24 for acute ischemic stroke, presents to the ER after witnessed episode of syncope.
Patient states she was in her usual state of health this morning. She ate a croissant and had tea. 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 She started to feel dizzy then had a witnessed episode of syncope. It is unclear
how long she was out for. No reported incontinence. She states that now she feels tired and is having trouble getting words out. No preceding chest pain. + nausea, No vomiting/diarrhea.
No recent fevers/chills. No chest pain or shortness of breath. No abdominal pain. No LE swelling.
She took her medications this morning.
Medical History
Past Medical History
Past Medical History: Reports CVA and HTN
Past Surgical History: Reports Other
Social History
Tobacco: Smoker (1 PPD)
Alcohol: Occasional
Family History
Family History: Not pertinent
Allergies / Home Medications
Allergies reflects when Allergies were last updated in [employer].
Home Medications with original date entered in [employer]
Allergy/Medication List:
Allergies
Allergy/AdvReac Type Severity Reaction Status Date / Time
No Known Allergies Allergy Verified 12/18/24 11:52
Home Medications
cholecalciferol (vitamin D3) 25 mcg (1,000 unit) tablet (Vitamin D3) 25 mcg PO DAILY Supplement 09/07/24
cyanocobalamin (vitamin B-12) 1,000 mcg tablet 1,000 mcg PO DAILY Supplement 09/07/24
magnesium oxide 400 mg PO DAILY Supplement 09/07/24
clopidogrel 75 mg tablet 75 mg PO DAILY #30 tabs 09/09/24
atorvastatin 40 mg tablet 40 mg PO DAILY 12/18/24
nifedipine 90 mg tablet,extended release 90 mg PO DAILY 12/18/24
omega 7-giw-vqq-fish oil 60 mg-90 mg-500 mg capsule (Fish Oil) 1 cap PO DAILY 12/18/24
Review of Systems
-
History Source: Patient
A 12 point ROS was completed and negative except as noted: Yes
Physical Exam
Vital Signs
Vital Signs
Temp Pulse Resp BP Pulse Ox
97.9 F 65 16 115/72 99
12/18/24 11:48 12/18/24 12:45 12/18/24 12:45 12/18/24 11:48 12/18/24 12:45
Physical Exam
General: No Apparent Distress and Conversant
HEENT: PERRLA
Respiratory: Clear; No Wheezes
Cardiac: S1/S2 and Regular Rhythm
GI: Soft and Non Tender
Musculoskeletal: No Edema
Skin: Warm and Dry; No Rash
Neuro: AO x 3 and Other (no facial asymmetry, 5/5 strength upper and lower extremities; word finding difficulties +; no receptive aphasia )
Psych: Calm
Laboratory Results
-
12/18/24 12:06
12/18/24 12:06
Laboratory Results
Total Bilirubin 0.5 mg/dl (0.2-1.3) 12/18/24 12:06
AST 32 U/L (14-36) 12/18/24 12:06
ALT 43 U/L (0-35) H 12/18/24 12:06
Alkaline Phosphatase 100 U/L (38-126) 12/18/24 12:06
Troponin I < 0.012 ng/ml 12/18/24 12:06
Data Reviewed
-
Diagnostic Radiology: Report Reviewed by me
Lab Data: Labs Reviewed by me
Impression/Plan
-
Ms. Petar Blancas is a 64 yo woman with hx tobacco use, essential HTN, recent admission 09/08-09/09/24 for acute ischemic stroke, presents to the ER after witnessed episode of syncope by co-workers.
Triage VS: T 97.9, P 70, RR 16, BP 115/72, SpO2 97%
LABS: WBC 9.6, Hg 13.2, PLT 268, Na 141, K+ 4.0, CO2 24, BUN 20, Cr 0.7, Glucose 140, Ca 9.6, Mag 2.3, T. Bili 0.5, AST 32, ALT 43, Alk Phos 100, Trop < 0.[address]
IMPRESSION:
No acute intracranial abnormality noted.
Small old right periventricular infarct.
Syncope versus Seizure versus CVA
-patient with persistent word-finding difficulties
-admit to observation, telemetry
-EEG ordered
-Neurology consult; discussed plan with Dr. Chambers (Neurology), who will see patient soon
-PT/OT/ST
-seizure precautions for now
-F/U further Neurology recommendations
Hx CVA
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
Tobacco use
-patient states she smokes 10 cigarettes/day
-cessation education provided
DVT PPx Lovenox subQ
FULL CODE
--- NOTE | 2024-12-18 16:49 | CON.NEURO ---
Consultation
Order
Date of Consultation: 12/18/24
Requesting Provider: Camila Aguilar MD
Reason for Consult: Dysarthria
Neurology Consultation Note.
HPI: This is a 64-year-old woman who presented to [facility] on 12/18/2024 with syncope. According to patient's son Ms. Boone had witnessed syncope at work. The patient does not recall the events surrounding the incident. No
reports of headache, change in vision. She does admit that her speech has been more slurred since the incident. Gerardoedgerardo states that her nifedipine dose was recently increased admits to recent nifedipine increase. Her son believes that she is more
confused today
The patient has history of right periventricular/centrum semiovale stroke in September 2024 after she presented with 3 days of ataxia and dysarthria. MRI head/neck showed no significant stenosis. Ms. Blancas she was discharged on DAPT and
atorvastatin 40 mg.
ER VS: 115/72, 70, afebrile
EKG:NSR, QTc Int : 407 ms
PDMP: No prescribed medications
Labs: Glucose�140, normal sodium, WBCs, creatinine, ormal TSH, B12
Brain MRI without gadolinium (09/2024)�acute/subacute right periventricular region/centrum semiovale
PMH: R periventricular/centrum semiovale stroke(09/2024), HTN, DLP, IGT, BMI 28, vitamin D/B12 deficiency,
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
FH: Mother is living at 86, father from coronary artery disease
All:NKDA
ROS: Constitutional: Negative. Negative for chills, fever and unexpected weight change.
HENT: Negative for ear pain, hearing loss, tinnitus and trouble swallowing.
Eyes: Negative. Negative for photophobia, pain and visual disturbance.
Respiratory: Negative for cough, choking and shortness of breath.
Cardiovascular: Negative for chest pain, palpitations and leg swelling.
Gastrointestinal: Negative for abdominal pain and vomiting.
Endocrine: Negative. Negative for cold intolerance.
Genitourinary: Negative for dysuria, flank pain and urgency.
Musculoskeletal: Negative for back pain, gait problem, neck pain and neck stiffness.
Skin: Negative for rash.
Allergic/Immunologic: Negative. Negative for immunocompromised state.
Neurological: Positive for chronic dysarthria, new imbalance, confusion
Psychiatric/Behavioral: Negative for behavioral problems, confusion and hallucinations.
General: Well developed. In no acute distress.
Cardio: Regular rate and rhythm without murmur. Extremities are without cyanosis or edema.
Neuro:
Mental Status: Alert, oriented to person, place, month, year. Date was incorrect. Impaired attention. Difficulties with swallowing complex requests nonfluent.
Cranial Nerves: Pupils are equally round and reactive to light. EOMs full. Visual briseno full to confrontation. No ptosis. No nystagmus. V1-V3 intact to light touch and pinprick bilaterally, symmetric. Face symmetric. Normal hearing AU. The
palate elevated well. SCMs and traps 5/5. Tongue midline. Moderate dysarthria
Motor: Normal bulk and tone. No pronator or arm drift. Strength 5/5 throughout. No clonus.
Reflexes: 2+ throughout the upper extremities and knees. 2/2 in AJs. Plantar responses flexor bilaterally.
Sensory: Normal vibration at the toes
Coordination: No dysmetria or tremor.
Gait: deferred
Assessment and Plan:
I. Syncope
II. 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
III. Encephalopathy.
-Continue Telemetry monitoring
-Continue aspirin 81 mg once a day and Plavix 75 mg once a day
-Lipitor 40 mg QHS.
-Please check urine tox, ck
-Brain MRI without amy
-Cardiology consult
-DVT prophylaxis.
I personally reviewed all radiology and labs along with past medical records pertinent to current medical problems. Total time spent in patient care is 60 minutes.
Thank you for allowing us to participate in the care of this patient. We will continue to follow. Please do not hesitate to contact us with any questions or concerns.
Subjective/Objective
Subjective Data
Date of Service: December 18, 2024
Objective Data
Vital Signs
Temp Pulse Resp BP Pulse Ox
36.6 C 69 23 119/73 99
12/18/24 11:48 12/18/24 16:30 12/18/24 16:30 12/18/24 16:00 12/18/24 12:45
Lab Results
12/18/24 12:06
12/18/24 12:06
Sodium 141 mmol/L (135-145) 12/18/24 12:06
Potassium 4.0 mmol/L (3.5-5.1) 12/18/24 12:06
BUN 20 mg/dl (7-17) H 12/18/24 12:06
Glucose 140 mg/dl (70-99) H 12/18/24 12:06
Calcium 9.6 mg/dl (8.4-10.2) 12/18/24 12:06
Patient Allergies
No Known Allergies Allergy (Verified 12/18/24 11:52)
Medications
-
Home Medications
�Medication �Instructions �Recorded
cholecalciferol (vitamin D3) 25 25 mcg PO DAILY Supplement 09/07/24
mcg (1,000 unit) tablet (Vitamin
D3)
cyanocobalamin (vitamin B-12) 1,000 mcg PO DAILY Supplement 09/07/24
1,000 mcg tablet
magnesium oxide 400 mg PO DAILY Supplement 09/07/24
clopidogrel 75 mg tablet 75 mg PO DAILY #30 tabs 09/09/24
atorvastatin 40 mg tablet 40 mg PO DAILY 12/18/24
nifedipine 90 mg tablet,extended 90 mg PO DAILY 12/18/24
release
omega 0-rdq-ufc-fish oil 60 mg-90 1 cap PO DAILY 12/18/24
mg-500 mg capsule (Fish Oil)
Vital Signs and Labs
-
Vital Signs and Labs:
Vital Signs
Temp Pulse Resp BP Pulse Ox
36.6 C 69 23 119/73 99
12/18/24 11:48 12/18/24 16:30 12/18/24 16:30 12/18/24 16:00 12/18/24 12:45
Lab Results
12/18/24 12:06
12/18/24 12:06
Sodium 141 mmol/L (135-145) 12/18/24 12:06
Potassium 4.0 mmol/L (3.5-5.1) 12/18/24 12:06
BUN 20 mg/dl (7-17) H 12/18/24 12:06
Glucose 140 mg/dl (70-99) H 12/18/24 12:06
Calcium 9.6 mg/dl (8.4-10.2) 12/18/24 12:06
Home Medications
-
Home Medications
cholecalciferol (vitamin D3) 25 mcg (1,000 unit) tablet (Vitamin D3) 25 mcg PO DAILY Supplement 09/07/24
cyanocobalamin (vitamin B-12) 1,000 mcg tablet 1,000 mcg PO DAILY Supplement 09/07/24
magnesium oxide 400 mg PO DAILY Supplement 09/07/24
clopidogrel 75 mg tablet 75 mg PO DAILY #30 tabs 09/09/24
atorvastatin 40 mg tablet 40 mg PO DAILY 12/18/24
nifedipine 90 mg tablet,extended release 90 mg PO DAILY 12/18/24
omega 7-trn-nxp-fish oil 60 mg-90 mg-500 mg capsule (Fish Oil) 1 cap PO DAILY 12/18/24
[2024-12-18 16:51] LABS: Vitamin B12 770 pg/ml (239-931)
--- NOTE | 2024-12-18 17:30 | EDRN ---
Patient taken to room 435-2 in wheelchair by bulk mail technician on monitor.
[2024-12-18 18:41] LABS: Creatine Phosphokinase 120 U/L (30-135)
[2024-12-18 19:01] LABS: Erythrocyte Sed Rate 22 mm/hour (0-20)
[2024-12-18] MEDS: LOVENOX 40 MG SC (19:30)
[2024-12-19] VITALS (7 sets, daily range): BP systolic 105–128; BP diastolic 58–76; PULSE 66–70
[2024-12-19] MEDS: PLAVIX 75 MG PO (08:05)
[2024-12-19] MEDS: PROCARDIA XL (EXTENDED RELEASE) 90 MG PO (08:05)
[2024-12-19] MEDS: LIPITOR 40 MG PO (08:07)
[2024-12-19 09:01] LABS: Urine Albumin 2+ (Neg - Trace); Urine Bilirubin Negative (Negative); Urine Character Clear (Clear); Urine Color Yellow; Urine Glucose Negative (Negative); Urine Ketone Negative (Negative); Urine Leukocyte 2+ (Negative); Urine Nitrite Negative (Negative); Urine Occult Blood Negative (Negative); Urine Specific Gravity 1.025 (<1.030); Urine Urobilinogen Negative (Neg - 1+)
[2024-12-19 09:12] LABS: Troponin I < 0.012 ng/ml
[2024-12-19 09:13] LABS: Hematocrit 40.7 % (37.0-47.0); Hemoglobin 13.8 g/dL (12.0-16.0); Mean Corp Hgb Conc. 33.9 g/dL (33.0-37.0); Mean Corpuscular Hgb 31.2 pg (27.0-31.0); Mean Corpuscular Volume 91.9 fL (81.0-99.0); Mean Platelet Volume 9.7 fL (7.4-10.4); Platelet Count 278 10^3/uL (130-400); Red Blood Cell Count 4.43 10^6/uL (4.20-5.40); Red Cell Dist. Width 12.6 % (11.5-14.5); White Blood Cell Count 7.1 10^3/uL (4.8-10.8)
[2024-12-19 09:25] LABS: Amphetamines Negative (Negative); Barbiturates Negative (Negative); Benzodiazepines Negative (Negative); Buprenorphine Negative (Negative); Cocaine Negative (Negative); Marijuana Negative (Negative); Methadone Negative (Negative); Methamphetamines Negative (Negative); Opiates Negative (Negative); Phencyclidine Negative (Negative); Tricyclic Antidepressants Negative (Negative)
[2024-12-19 10:05] LABS: Blood Urea Nitrogen 24 mg/dl (7-17); Carbon Dioxide 25 mmol/L (22-30); Chloride 108 mmol/L (98-107); Estimated Creatinine Clearance 65 ml/min; Glucose 93 mg/dl (70-99); HDL Cholesterol 54 mg/dl; LDL Cholesterol, Calculated 73 mg/dl; Magnesium 2.5 mg/dl (1.6-2.3); Potassium 4.6 mmol/L (3.5-5.1); Sodium 143 mmol/L (135-145); Total Cholesterol 150 mg/dl (50-199); Triglyceride 119 mg/dl (10-149); Very Low Density Lipoprotein 23 mg/dl (0-30); eGFR > 60.00
[2024-12-19 10:34] LABS: Urine Squamous Cell 16-20 /LPF (Few)
[2024-12-19 10:35] LABS: Urine Amorphous Seen; Urine Red Blood Cell 0-2 /HPF (0-2); Urine Urothelial Cell 0-2 /LPF (FEW)
[2024-12-19 10:36] LABS: Urine Bacteria Few (Negative)
--- NOTE | 2024-12-19 10:50 | PTOTSP ---
Speech Therapy Evaluation:
Swallow:
Pt presents with functional-mild oral dysphagia as demonstrated by prolonged mastication and bolus formation (however functional) with decreased oral clearance, in which liquid wash assisted with. No overt s/sx of aspiration across PO trials,
however CERTIFIED GENETIC COUNSELOR noted pt holding her throat. Pt denied any difficulty or globus sensation, however moments later asked for liquid wash, in which she reported 'better.' Pt with acute dysphagia risk factor including concern for syncope versus seizure
versus CVA. WBC WNL. Pt on room air. Pt passed 3oz swallow screen.
Speech:
Pt with residual dysarthria from CVA in 2024 (mild), however pt/son reported worsening in slurred speech, consistent with clinical observation. Pt intelligible in conversation, however pt demonstrated intermittent moments of decreased
articulatory precision. Pt would benefit from ongoing intervention to target increased overall intelligibility.
Language:
Given reported word finding difficulties, the Quick Aphasia Battery (QAB) form 1 was administered. Scores were as follows:
Word Comprehension: 10.00
Sentence Comprehension: 7.92
Word Findin.50
Grammatical Construction: 5.75
Speech Motor Programmin.00
Repetition: 9.17
Readin.00
QAB Overall: 8.09 - mild
Impression: Pt scored 8.09 on the QAB, indicative of mild language impairments per parameters of this assessment. Pt demonstrated expressive > receptive language deficits. Points were lost in the following categories: sentence comprehension, word
finding, grammatical construction, and repetition. In conversation, pt demonstrated expressive language deficits as characterized by reduced length and complexity of utterances, reduced speech rate, telegraphic speech, word finding deficits, and
false starts with frequent implementation of filler words. Pt would benefit from ongoing intervention to improve language deficits
Recommend:
1. Continue IDDSI Level 7 (regular) solids and thin liquids
2. Medications as tolerated
3. General aspiration and reflux precautions
4. Partial supervision with meals
5. Ongoing ST at acute care level to monitor tolerance of diet, target speech/language deficits, and determine if pt would benefit from cognitive assessment
--- NOTE | 2024-12-19 10:53 | W.PN.NEURO.1 ---
Today's Communication / Plan
-
.
Subjective/Objective
Subjective Data
Date of Service: December 19, 2024
Neurology follow-up note.
The patient reports no recurrent syncopal episodes since admission. No reports of change in speech, vision, strength or sensation.
Telemetry�normal sinus rhythm.
Brain MRI without gadolinium (09/08/2024)�acute/subacute right periventricular region/centrum semiovale.
Urine tox�negative, CK�normal
PMH: R periventricular/centrum semiovale stroke(09/2024), HTN, DLP, IGT, BMI 28, vitamin D/B12 deficiency,
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
FH: Mother is living at 86, father from coronary artery disease
All:NKDA
ROS: Constitutional: Negative. Negative for chills, fever and unexpected weight change.
HENT: Negative for ear pain, hearing loss, tinnitus and trouble swallowing.
Eyes: Negative. Negative for photophobia, pain and visual disturbance.
Respiratory: Negative for cough, choking and shortness of breath.
Cardiovascular: Negative for chest pain, palpitations and leg swelling.
Gastrointestinal: Negative for abdominal pain and vomiting.
Endocrine: Negative. Negative for cold intolerance.
Genitourinary: Negative for dysuria, flank pain and urgency.
Musculoskeletal: Negative for back pain, gait problem, neck pain and neck stiffness.
Skin: Negative for rash.
Allergic/Immunologic: Negative. Negative for immunocompromised state.
Neurological: Positive for chronic dysarthria, imbalance.
Psychiatric/Behavioral: Negative for behavioral problems, confusion and hallucinations.
General: Well developed. In no acute distress.
Cardio: Regular rate and rhythm without murmur. Extremities are without cyanosis or edema.
Neuro:
Mental Status: Alert, oriented to person, place, month, year. Date was incorrect. Impaired attention. Difficulties with swallowing complex requests nonfluent.
Cranial Nerves: Pupils are equally round and reactive to light. EOMs full. Visual briseno full to confrontation. No ptosis. No nystagmus. V1-V3 intact to light touch and pinprick bilaterally, symmetric. Face symmetric. Normal hearing AU. The
palate elevated well. SCMs and traps 5/5. Tongue midline. Mild to moderate dysarthria, mild dysphonia
Motor: Normal bulk and tone. No pronator or arm drift. Strength 5/5 throughout. No clonus.
Coordination: No dysmetria or tremor.
Gait: Normal stance, reduced left arm swing
Assessment and Plan:
I. Syncope vs seizure.
II. Subacute�chronic right periventricular/centrum semiovale with residual dysarthria
III. Nicotine addiction
-Continue Telemetry monitoring
-Continue aspirin 81 mg once a day and Plavix 75 mg once a day
-Lipitor 40 mg QHS.
-Brain MRI without amy
-Routine EEG
-Smoking cessation
-Cardiology follow-up
-DVT prophylaxis.
I personally reviewed all radiology and labs along with past medical records pertinent to current medical problems. Total time spent in patient care is 35 minutes.
Thank you for allowing us to participate in the care of this patient. We will continue to follow. Please do not hesitate to contact us with any questions or concerns.
Objective Data
Vital Signs
Temp Pulse Resp BP Pulse Ox
36.7 C 65 16 114/72 99
12/19/24 07:00 12/19/24 07:00 12/19/24 07:00 12/19/24 07:00 12/19/24 07:00
Lab Results
12/19/24 08:23
12/19/24 08:23
Sodium 143 mmol/L (135-145) 12/19/24 08:23
Potassium 4.6 mmol/L (3.5-5.1) 12/19/24 08:23
BUN 24 mg/dl (7-17) H 12/19/24 08:23
Glucose 93 mg/dl (70-99) 12/19/24 08:23
Calcium 10.0 mg/dl (8.4-10.2) 12/19/24 08:23
LDL Cholesterol, Calc 73 mg/dl 12/19/24 08:23
Vitamin B12 770 pg/ml (577-608) 12/18/24 12:06
Ur Buprenorphine Negative (Negative) 12/19/24 08:02
Patient Allergies
No Known Allergies Allergy (Verified 12/18/24 11:52)
Vital Signs and Labs
-
Vital Signs and Labs:
Vital Signs
Temp Pulse Resp BP Pulse Ox
36.7 C 65 16 114/72 99
12/19/24 07:00 12/19/24 07:00 12/19/24 07:00 12/19/24 07:00 12/19/24 07:00
Lab Results
12/19/24 08:23
12/19/24 08:23
Sodium 143 mmol/L (135-145) 12/19/24 08:23
Potassium 4.6 mmol/L (3.5-5.1) 12/19/24 08:23
BUN 24 mg/dl (7-17) H 12/19/24 08:23
Glucose 93 mg/dl (70-99) 12/19/24 08:23
Calcium 10.0 mg/dl (8.4-10.2) 12/19/24 08:23
LDL Cholesterol, Calc 73 mg/dl 12/19/24 08:23
Vitamin B12 770 pg/ml (329-091) 12/18/24 12:06
Ur Buprenorphine Negative (Negative) 12/19/24 08:02
Medications
-
Medications:
Generic Name Dose Route Start Last Admin
Trade Name Freq PRN Reason Stop Dose Admin
Acetaminophen 650 mg 12/18/24 17:26
Acetaminophen 650 Mg Rectal Suppository RECTAL 01/15/25 17:25
Q4HPRN PRN
SAMAYOA, mild pain, or temp >100.4F
Acetaminophen 650 mg 12/18/24 17:26
Acetaminophen 325 Mg Tablet PO 01/15/25 17:25
Q4HPRN PRN
SAMAYOA, mild pain, or temp >100.4F
Atorvastatin Calcium 40 mg 12/19/24 08:00 12/19/24 08:07
Atorvastatin (Lipitor) 40 Mg Tablet PO 01/16/25 07:59 40 mg
DAILY PAL Administration
Clopidogrel Bisulfate 75 mg 12/19/24 08:00 12/19/24 08:05
Clopidogrel 75 Mg Tablet PO 01/16/25 07:59 75 mg
DAILY PAL Administration
Enoxaparin Sodium 40 mg 12/18/24 18:00 12/18/24 19:30
Enoxaparin Sodium 40 Mg/0.4 Ml Syringe SC 01/15/25 17:59 40 mg
QPM PAL Administration
Nifedipine 90 mg 12/19/24 08:00 12/19/24 08:05
Nifedipine 30 Mg Extended Release Tablet PO 01/16/25 07:59 90 mg
DAILY PAL Administration
Sodium Chloride 0 flush 12/18/24 18:00
Sodium Chloride 0.9% (Flush) Syringe IV 01/15/25 17:59
PER PROTOCOL PAL
Home Medications
-
Home Medications
cholecalciferol (vitamin D3) 25 mcg (1,000 unit) tablet (Vitamin D3) 25 mcg PO DAILY Supplement 09/07/24
cyanocobalamin (vitamin B-12) 1,000 mcg tablet 1,000 mcg PO DAILY Supplement 09/07/24
magnesium oxide 400 mg PO DAILY Supplement 09/07/24
clopidogrel 75 mg tablet 75 mg PO DAILY #30 tabs 09/09/24
atorvastatin 40 mg tablet 40 mg PO DAILY 12/18/24
nifedipine 90 mg tablet,extended release 90 mg PO DAILY 12/18/24
omega 8-cam-mkj-fish oil 60 mg-90 mg-500 mg capsule (Fish Oil) 1 cap PO DAILY 12/18/24
--- NOTE | 2024-12-19 14:21 | EEGC.RPT ---
Continuous EEG Report
Recording
Start Date of Data Reviewed: 12/19/24
Done with Video Recording: Yes
Electrocardiogram: Unremarkable
Report
TECHNICAL REMARKS: This is a technically satisfactory eighteen channel record employing 21 disc electrodes applied according to a measured international 10-20 electrode placement system. There were no significant technical difficulties. The study
was done on a [employer] System.
CLINICAL HISTORY: This is a 64-year-old woman with syncope. This study was requested to look for epileptiform abnormalities.
MEDICATION: No AEDs
STUDY DURATION: 33 min, 49 secs
REPORT: At the onset of the EEG, the patient is awake. The background activity consists of 9.5-10 Hz, persistent, posteriorly dominant, moderate amplitude, symmetric and rhythmic activity that is reactive to eye-opening. Anteriorly, it consists of
a mixture of low voltage indeterminate activity and 20-25 Hz, persistent, low amplitude, symmetric and rhythmic activity. Stepwise intermittent photic stimulation (1-31 Hz) does not induce any abnormalities. Hyperventilation was not performed.
Drowsiness is characterized by low amplitude mixed frequency activity, decreased eye blinking, and muscle artifact. N2 sleep was reached.
IMPRESSION: This is a normal awake and sleep EEG. There is no evidence of focal slowing or epileptiform activity. A normal EEG does not rule out epilepsy. If the clinical picture warrants, a sleep-deprived awake and sleep record may be helpful.
--- NOTE | 2024-12-19 14:40 | W.PN.HOSP.TC ---
Today's Communication/Plan
-
awaiting MRI
Assessment / Plan
Assessment / Plan
Ms. Petar Blancas is a 64 yo woman with hx tobacco use, essential HTN, recent admission 09/08-09/09/24 for acute ischemic stroke, presents to the ER after witnessed episode of syncope by co-workers followed by word-finding difficulties persistent.
HEAD CT
IMPRESSION:
No acute intracranial abnormality noted.
Small old right periventricular infarct.
Syncope versus Seizure versus CVA
-patient with persistent word-finding difficulties, continues today
-s/p EEG read as normal
-MRI Brain pending
-Neurology consult appreciated
-PT/OT/ST - outpatient therapy recommended
-seizure precautions for now
Hx CVA
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
Tobacco use
-patient states she smokes 10 cigarettes/day
-cessation education provided
DVT PPx Lovenox subQ
FULL CODE
Anticipated Discharge: 24 - 48 hours
Subjective/Interval History
-
Date of Service: December 19, 2024
continues to have word finding difficulties
no other complaints
Objective Data
-
Labs:
Laboratory Results
12/19/24
08:23
WBC 7.1
Hgb 13.8
Hct 40.7
Plt Count 278
Sodium 143
Potassium 4.6
Chloride 108 H
Carbon Dioxide 25
BUN 24 H
Creatinine 0.7
Glucose 93
Calcium 10.0
Vital Signs:
Vital Signs
Temp Pulse Resp BP Pulse Ox
98.4 F 83 18 119/76 100
12/19/24 12:30 12/19/24 12:30 12/19/24 12:30 12/19/24 12:30 12/19/24 12:30
I&O
12/18/24 12/19/24 12/20/24
06:59 06:59 06:59
Intake Total 480 / 480
Output Total 0 / 0
Balance 480 / 480
Review of Systems
-
History Source: Patient
All other systems: Reviewed and negative
Physical Exam
-
General: Well Developed and No Apparent Distress
HEENT: Normocephalic, Atraumatic and Moist Mucous Membranes
Respiratory: Clear to Auscultation
Cardiac: Regular Rhythm and S1/S2; Negative Murmur, Rub or Gallop
GI: Soft, Nontender, Nondistended and Normal Bowel Sounds; Negative Organomegaly
Rectal: Deferred by Provider
Musculoskeletal: No Clubbing, No Cyanosis and No Edema
Skin: Negative Rash
Neuro: Awake, Alert, Oriented and Other (no facial asymmetry, + expressive aphasia, 5/5 strength upper and lower extremities )
Psych: Calm
Data Reviewed
-
Diagnostic Radiology: Report Reviewed by me
Labs: Labs Reviewed by me
--- NOTE | 2024-12-19 17:08 | CM ---
Patient was admitted under OBS, OBS letter given to patient, patient lives with friend, is independent with adl's and ambulation, no dme, patient drives, patient works part-time, plan is to home when stable no needs, patient does not have a PCP and
was directed to [facility].
Pharmacy [facility] in [place]
Plan; Home when stable.
[2024-12-19] MEDS: LOVENOX 40 MG SC (17:21)
[2024-12-20] VITALS (7 sets, daily range): BP systolic 106–149; BP diastolic 35–85; PULSE 66; O2SAT 96
[2024-12-20] MEDS: PROCARDIA XL (EXTENDED RELEASE) 90 MG PO (08:27)
[2024-12-20] MEDS: LIPITOR 40 MG PO (08:27)
[2024-12-20] MEDS: PLAVIX 75 MG PO (08:27)
--- NOTE | 2024-12-20 10:24 | W.PN.NEURO.1 ---
Today's Communication / Plan
-
.
Subjective/Objective
Subjective Data
Date of Service: December 20, 2024
Neurology follow-up note.
Ms. Damon reports no complaints. According to her [id number] there has been significant change in patient's personality since admission.
Brain MRI w/wo amy(12/19/2024) acute infarct in the left globus pallidus, nonenhancing progressive moderate to severe periventricular, subcortical white matter T2/FLAIR abnormalities and right lateral pontine margin chronic hemorrhagic infarct vs
cavernous angioma.
LDL 73, ESR, CRP-normal.
Telemetry�normal sinus rhythm.
Spoke to patient's pharmacist who confirmed regular Plavix refills
PMH: R periventricular/centrum semiovale stroke(09/2024), HTN, DLP, IGT, BMI 28, vitamin D/B12 deficiency,
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
FH: Mother is living at 86, father from coronary artery disease
All:NKDA
ROS: Constitutional: Negative. Negative for chills, fever and unexpected weight change.
HENT: Positive for dysphonia
Eyes: Negative. Negative for photophobia, pain and visual disturbance.
Respiratory: Negative for cough, choking and shortness of breath.
Cardiovascular: Negative for chest pain, palpitations and leg swelling.
Gastrointestinal: Negative for abdominal pain and vomiting.
Endocrine: Negative. Negative for cold intolerance.
Genitourinary: Negative for dysuria, flank pain and urgency.
Musculoskeletal: Negative for back pain, gait problem, neck pain and neck stiffness.
Skin: Negative for rash.
Allergic/Immunologic: Negative. Negative for immunocompromised state.
Neurological: Positive for chronic dysarthria
Psychiatric/Behavioral: Positive for change personality
General: Well developed. In no acute distress.
Cardio: Regular rate and rhythm without murmur. Extremities are without cyanosis or edema.
Neuro:
Mental Status: Alert, oriented to self, place, person. Apathetic. Impaired attention and comprehension. Increased processing time. Follows simple requests.
Cranial Nerves: Pupils are equally round and reactive to light. EOMs full. BTT BL No ptosis. No nystagmus. Face symmetric. Normal hearing AU. The palate elevated well. SCMs and traps 5/5. Tongue midline. Mild dysarthria, spastic dysphonia
Motor: Normal FFM. Normal bulk and tone. No pronator or arm drift. Strength 5/5 throughout. No clonus.
Coordination: No dysmetria or tremor.
Gait: Normal stance, reduced left arm swing
Assessment and Plan:
I. Acute left globus pallidus stroke. Likely etiology small vessel disease.
II. Severe progressive subcortical white matter disease. Differential diagnosis includes vascular versus demyelinating less likely inflammatory or infectious etiologies.
III. Subacute�chronic right periventricular/centrum semiovale
IV. Nicotine addiction
V. R pontine chronic hemorrhage vs cavernoma.
. Vascular encephalopathy
VII. Plavix failure.
-Continue Telemetry monitoring
-Medication administration supervision
-Aspiration precautions
-Please switch Plavix 75 mg QD to Brilinta 90 mg BID. Given the absence of large prospective clinical trial evidence to support personalized P2Y12 inhibitor therapy, routine testing of patients for Clopidogrel resistance by genetic testing to detect
loss of function gene carriers (eg, REG6C05 allele testing) or by platelet function testing to detect high on-treatment platelet reactivity is not recommended at this time.
-Lipitor 40 mg QHS.
-CTA head with contrast
-Additional vasculopathy serologies
-Smoking cessation
-No driving
-SW consult
-DVT prophylaxis.
I personally reviewed all radiology and labs along with past medical records pertinent to current medical problems. Total time spent in patient care is 35 minutes.
Thank you for allowing us to participate in the care of this patient. We will continue to follow. Please do not hesitate to contact us with any questions or concerns.
Objective Data
Vital Signs
Temp Pulse Resp BP Pulse Ox
36.8 C 56 20 111/69 98
12/20/24 07:33 12/20/24 07:33 12/20/24 07:33 12/20/24 07:33 12/20/24 07:33
Lab Results
12/19/24 08:23
12/19/24 08:23
Sodium 143 mmol/L (135-145) 12/19/24 08:23
Potassium 4.6 mmol/L (3.5-5.1) 12/19/24 08:23
BUN 24 mg/dl (7-17) H 12/19/24 08:23
Glucose 93 mg/dl (70-99) 12/19/24 08:23
Calcium 10.0 mg/dl (8.4-10.2) 12/19/24 08:23
LDL Cholesterol, Calc 73 mg/dl 12/19/24 08:23
Vitamin B12 770 pg/ml (239-931) 12/18/24 12:06
Ur Buprenorphine Negative (Negative) 12/19/24 08:02
Patient Allergies
No Known Allergies Allergy (Verified 12/18/24 11:52)
Vital Signs and Labs
-
Vital Signs and Labs:
Vital Signs
Temp Pulse Resp BP Pulse Ox
36.8 C 56 20 111/69 98
12/20/24 07:33 12/20/24 07:33 12/20/24 07:33 12/20/24 07:33 12/20/24 07:33
Lab Results
12/19/24 08:23
12/19/24 08:23
Sodium 143 mmol/L (135-145) 12/19/24 08:23
Potassium 4.6 mmol/L (3.5-5.1) 12/19/24 08:23
BUN 24 mg/dl (7-17) H 12/19/24 08:23
Glucose 93 mg/dl (70-99) 12/19/24 08:23
Calcium 10.0 mg/dl (8.4-10.2) 12/19/24 08:23
LDL Cholesterol, Calc 73 mg/dl 12/19/24 08:23
Vitamin B12 770 pg/ml (813-715) 12/18/24 12:06
Ur Buprenorphine Negative (Negative) 12/19/24 08:02
Medications
-
Medications:
Generic Name Dose Route Start Last Admin
Trade Name Freq PRN Reason Stop Dose Admin
Acetaminophen 650 mg 12/18/24 17:26
Acetaminophen 650 Mg Rectal Suppository RECTAL 01/15/25 17:25
Q4HPRN PRN
SAMAYOA, mild pain, or temp >100.4F
Acetaminophen 650 mg 12/18/24 17:26
Acetaminophen 325 Mg Tablet PO 01/15/25 17:25
Q4HPRN PRN
SAMAYOA, mild pain, or temp >100.4F
Atorvastatin Calcium 40 mg 12/19/24 08:00 12/20/24 08:27
Atorvastatin (Lipitor) 40 Mg Tablet PO 01/16/25 07:59 40 mg
DAILY PAL Administration
Clopidogrel Bisulfate 75 mg 12/19/24 08:00 12/20/24 08:27
Clopidogrel 75 Mg Tablet PO 01/16/25 07:59 75 mg
DAILY PAL Administration
Enoxaparin Sodium 40 mg 12/18/24 18:00 12/19/24 17:21
Enoxaparin Sodium 40 Mg/0.4 Ml Syringe SC 01/15/25 17:59 40 mg
QPM PAL Administration
Nifedipine 90 mg 12/19/24 08:00 12/20/24 08:27
Nifedipine 30 Mg Extended Release Tablet PO 01/16/25 07:59 90 mg
DAILY PAL Administration
Sodium Chloride 0 flush 12/18/24 18:00
Sodium Chloride 0.9% (Flush) Syringe IV 01/15/25 17:59
PER PROTOCOL PAL
Home Medications
-
Home Medications
cholecalciferol (vitamin D3) 25 mcg (1,000 unit) tablet (Vitamin D3) 25 mcg PO DAILY Supplement 09/07/24
cyanocobalamin (vitamin B-12) 1,000 mcg tablet 1,000 mcg PO DAILY Supplement 09/07/24
magnesium oxide 400 mg PO DAILY Supplement 09/07/24
clopidogrel 75 mg tablet 75 mg PO DAILY #30 tabs 09/09/24
atorvastatin 40 mg tablet 40 mg PO DAILY High Cholesterol 12/18/24
nifedipine 90 mg tablet,extended release 90 mg PO DAILY Blood Pressure 12/18/24
omega 8-[id number]-fish oil 60 mg-90 mg-500 mg capsule (Fish Oil) 1 cap PO DAILY Supplement 12/18/24
--- NOTE | 2024-12-20 10:41 | W.PN.HOSP.TC ---
Today's Communication/Plan
-
see plan
Assessment / Plan
Assessment / Plan
Ms. Petar Blancas is a 64 yo woman with hx tobacco use, essential HTN, recent admission 09/08-09/09/24 for acute ischemic stroke, presents to the ER after witnessed episode of syncope by co-workers followed by word-finding difficulties persistent.
HEAD CT
IMPRESSION:
No acute intracranial abnormality noted.
Small old right periventricular infarct.
MRI 12/19/24
IMPRESSION:
Multiple small acute infarcts associated with the left basal ganglia, specifically along the posterior and superior margin of the left globus pallidus.
Progressive encephalomalacia involving a small focal 1 cm remote infarct in the right periventricular white matter. Stable linear focus of encephalomalacia in the inferior lateral left parietal lobe, which may also represent an old linear infarct.
Possible tiny chronic lacunar infarct involving the mid christopher.
Progressive moderate to large volume of periventricular, subcortical white matter, and deep white matter leukoaraiosis. No associated abnormal enhancement. Possible considerations include progressive demyelination, chronic ischemic
change/hypertensive microangiopathy in the proper clinical setting, or vasculitis.
Acute CVA - MRI with multiple small infarcts associated with left basal ganglia
Hx recent CVA 09/29
-appreciate Neurology
-continue [employer] Plavix/Statin
-smoking cessation
-MRA head/neck last admission without focal significant stenosis, aneurysm or occlusion. TTE last admission (09/24/24) - no significant valve disease; EF 60-65%
-CT angio ordered per Neurology - changed to urgent given decline (more subdued, increased RUE weakness this AM)
-per neuro, no need for continuous heart monitoring as stroke not embolic
-protein electrophoresis ordered per neuro
-PT/OT/ST - outpatient therapy recommended - discussed with CM
Tobacco use
-patient states she smokes 10 cigarettes/day
-cessation education provided
DVT PPx Lovenox subQ
FULL CODE
51 minutes spent on patient care
Anticipated Discharge: Within 24 hours
Subjective/Interval History
-
Date of Service: December 20, 2024
patient more subdued today
she is seen with son at bedside
worsening RUE weakness
Objective Data
-
Vital Signs:
Vital Signs
Temp Pulse Resp BP Pulse Ox
98.2 F 56 20 111/69 98
12/20/24 07:33 12/20/24 07:33 12/20/24 07:33 12/20/24 07:33 12/20/24 07:33
I&O
12/19/24 12/20/24 12/21/24
06:59 06:59 06:59
Intake Total 480 / 480 1440 / 1440
Output Total 0 / 0
Balance 480 / 480 1440 / 1440
Review of Systems
-
History Source: Patient
All other systems: Reviewed and negative
Physical Exam
-
General: Well Developed and No Apparent Distress
HEENT: Normocephalic, Atraumatic and Moist Mucous Membranes
Respiratory: Clear to Auscultation
Cardiac: Regular Rhythm and S1/S2; Negative Murmur, Rub or Gallop
GI: Soft, Nontender, Nondistended and Normal Bowel Sounds; Negative Organomegaly
Rectal: Deferred by Provider
Musculoskeletal: No Clubbing, No Cyanosis and No Edema
Skin: Negative Rash
Neuro: Awake, Alert, Oriented and Other (no facial asymmetry, + expressive aphasia, RUE pronator drift present )
Psych: Calm
Data Reviewed
-
Diagnostic Radiology: Report Reviewed by me
Labs: Labs Reviewed by me
[2024-12-20 12:25] LABS: HIV Combo Negative (Negative)
--- NOTE | 2024-12-20 13:28 | PTCARENOTE ---
Received patient in am arousable to verbal and tactile stimuli. Drowsy this am. NIH 3 - did not know her age, had mild slurred speech and was sleepy but arousable . Hospitalist notified. Patient was seen by PT today , they felt her right arm was
a little weaker today than previously. Neurology aware of pt condition today. Flat affect, will answer questions at times, needs encouragement to answer . Out of bed at present . Call kumar in reach, in no distress .
--- NOTE | 2024-12-20 14:04 | CM ---
Patient switched to inpatient, patient made aware. grooming salon manager reviewed patient's chart and met with patient and family and provided information on applying for disability, plan is to home with VN, VN liaison contacted.
Per insurance cost of Brilinta 90mg PO BID is $296.96 per month.
Plan; Home with family at discharge.
[2024-12-20] MEDS: LOVENOX 40 MG SC (17:31)
[2024-12-21 03:30] VITALS: BP 138/82
[2024-12-21] MEDS: LIPITOR 40 MG PO (07:40)
[2024-12-21] MEDS: PROCARDIA XL (EXTENDED RELEASE) 90 MG PO (07:40)
[2024-12-21] MEDS: BRILINTA 90 MG PO (07:41)
[2024-12-21 07:50] VITALS: BP 122/75
[2024-12-21 10:04] LABS: ANA, IgG Reflex to HEp-2 None Detected (None Detected)
--- NOTE | 2024-12-21 10:29 | W.PN.HOSP.TC ---
Today's Communication/Plan
-
OK for discharge today
Assessment / Plan
Assessment / Plan
Ms. Petar Blancas is a 64 yo woman with hx tobacco use, essential HTN, recent admission 09/08-09/09/24 for acute ischemic stroke, presents to the ER after witnessed episode of syncope by co-workers followed by word-finding difficulties persistent.
HEAD CT
IMPRESSION:
No acute intracranial abnormality noted.
Small old right periventricular infarct.
MRI 12/19/24
IMPRESSION:
Multiple small acute infarcts associated with the left basal ganglia, specifically along the posterior and superior margin of the left globus pallidus.
Progressive encephalomalacia involving a small focal 1 cm remote infarct in the right periventricular white matter. Stable linear focus of encephalomalacia in the inferior lateral left parietal lobe, which may also represent an old linear infarct.
Possible tiny chronic lacunar infarct involving the mid christopher.
Progressive moderate to large volume of periventricular, subcortical white matter, and deep white matter leukoaraiosis. No associated abnormal enhancement. Possible considerations include progressive demyelination, chronic ischemic
change/hypertensive microangiopathy in the proper clinical setting, or vasculitis.
CTA
IMPRESSION:
1. No acute intracranial abnormality identified. Chronic right periventricular white matter infarct. Subacute left basal ganglia infarcts as seen on MRI of one day prior. No intracranial hemorrhage.
2. No major branch vessel occlusion, flow-limiting stenosis, or dissection identified.
3. Left intracranial internal carotid proximally 2 mm focal outpouching as above, tiny aneurysm versus vessel infundibulum.
Acute CVA - MRI with multiple small infarcts associated with left basal ganglia
Hx recent CVA 09/29
-appreciate Neurology
-continue statin
-Started on Brilinta per Neurology - patient and family willing to pay and then evaluate as outpatient
-smoking cessation
-MRA head/neck last admission without focal significant stenosis, aneurysm or occlusion. TTE last admission (09/24/24) - no significant valve disease; EF 60-65%
-CT angio ordered per Neurology - no acute abnormality, results above
-per neuro, no need for continuous heart monitoring as stroke not embolic
-protein electrophoresis ordered per neuro
-PT/OT/ST - outpatient therapy recommended - discussed with CM - scripts provided
Tobacco use
-patient states she smokes 10 cigarettes/day
-cessation education provided
DVT PPx Lovenox subQ
FULL CODE
51 minutes spent on patient care
Anticipated Discharge: Today
Subjective/Interval History
-
Date of Service: December 21, 2024
seen with family at bedside
she feels ready to go home
Objective Data
-
Vital Signs:
Vital Signs
Temp Pulse Resp BP Pulse Ox
98.2 F 64 18 122/75 98
12/21/24 07:50 12/21/24 07:50 12/21/24 07:50 12/21/24 07:50 12/21/24 07:50
I&O
12/20/24 12/21/24 12/22/24
06:59 06:59 06:59
Intake Total 1440 / 1440 960 / 960
Balance 1440 / 1440 960 / 960
Review of Systems
-
History Source: Patient
All other systems: Reviewed and negative
Physical Exam
-
General: Well Developed and No Apparent Distress
HEENT: Normocephalic, Atraumatic and Moist Mucous Membranes
Respiratory: Clear to Auscultation
Cardiac: Regular Rhythm and S1/S2; Negative Murmur, Rub or Gallop
GI: Soft, Nontender, Nondistended and Normal Bowel Sounds; Negative Organomegaly
Rectal: Deferred by Provider
Musculoskeletal: No Clubbing, No Cyanosis and No Edema
Skin: Negative Rash
Neuro: Awake, Alert, Oriented and Other (no facial asymmetry, + expressive aphasia, RUE pronator drift present )
Psych: Calm
Data Reviewed
-
Diagnostic Radiology: Report Reviewed by me
Labs: Labs Reviewed by me
--- NOTE | 2024-12-21 10:34 | W.DS.TRANS ---
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
-
Discharge Instructions:
Discharge Diagnosis/Procedures acute ischemic stroke
Diet Low Cholesterol
Activity As tolerated
Driving Restrictions No driving
Bathing Restrictions None
Other Services PT,OT,ST
Instructions:
Stand-Alone Forms:
Changes to Home Medications: Yes
Discharge Medications:
DC Medications w/original date entered in [employer]
cholecalciferol (vitamin D3) 25 mcg (1,000 unit) tablet (Vitamin D3) 25 mcg PO DAILY Supplement 09/07/24
cyanocobalamin (vitamin B-12) 1,000 mcg tablet 1,000 mcg PO DAILY Supplement 09/07/24
magnesium oxide 400 mg PO DAILY Supplement 09/07/24
atorvastatin 40 mg tablet 40 mg PO DAILY High Cholesterol 12/18/24
nifedipine 90 mg tablet,extended release 90 mg PO DAILY Blood Pressure 12/18/24
omega 0-vqf-tkx-fish oil 60 mg-90 mg-500 mg capsule (Fish Oil) 1 cap PO DAILY Supplement 12/18/24
ticagrelor 90 mg tablet (Brilinta) 90 mg PO BID #60 tabs 12/21/24
Home Medication Changes
Stop Plavix, this is replaced with Brilinta
Pending Results: Yes
Additional Pending Results:
protein electrophoresis
--- NOTE | 2024-12-21 10:36 | VNURNOTE ---
Chart reviewed. Case discussed w/CM Mónica. PT/OT recs are outpt therapies. No [facility] at this time. Hospitalist to provide Rx for outpt PT.
--- NOTE | 2024-12-21 11:13 | CM ---
Patient is followed by the [facility], and watch caser spoke with physician, and disability forms have been completed and provided to family, family to take patient to Medicaid office to apply for disability.
Free first month coupon has been provided for Melanie, patient will go home with VN and follow up with outpatient PT/OT. Patient is followed by [facility] the [facility].
Plan; Home today, with [facility]
--- NOTE | 2024-12-21 11:15 | W.PN.NEURO.1 ---
Today's Communication / Plan
-
.
Subjective/Objective
Subjective Data
Date of Service: December 21, 2024
Neurology follow-up note.
Ms. Damon reports no complaints. She is eager to go home.
CTA head�no evidence of stenosis.
PMH: R periventricular/centrum semiovale stroke(09/2024), HTN, DLP, IGT, BMI 28, vitamin D/B12 deficiency,
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
FH: Mother is living at 86, father from coronary artery disease
All:NKDA
ROS: Constitutional: Negative. Negative for chills, fever and unexpected weight change.
HENT: Positive for dysphonia
Eyes: Negative. Negative for photophobia, pain and visual disturbance.
Respiratory: Negative for cough, choking and shortness of breath.
Cardiovascular: Negative for chest pain, palpitations and leg swelling.
Gastrointestinal: Negative for abdominal pain and vomiting.
Endocrine: Negative. Negative for cold intolerance.
Genitourinary: Negative for dysuria, flank pain and urgency.
Musculoskeletal: Negative for back pain, gait problem, neck pain and neck stiffness.
Skin: Negative for rash.
Allergic/Immunologic: Negative. Negative for immunocompromised state.
Neurological: Positive for chronic dysarthria
Psychiatric/Behavioral: Positive for change personality
General: Well developed. In no acute distress.
Cardio: Regular rate and rhythm without murmur. Extremities are without cyanosis or edema.
Neuro:
Mental Status: Alert, oriented to self, place, person. Impaired attention and comprehension. Increased processing time. Follows simple requests. Unable to do serial sevens
Cranial Nerves: Pupils are equally round and reactive to light. EOMs full. BTT BL No ptosis. No nystagmus. Face symmetric. Normal hearing AU. The palate elevated well. SCMs and traps 5/5. Tongue midline. Mild dysarthria, spastic dysphonia
Motor: Normal FFM. Normal bulk and tone. No pronator or arm drift. Strength 5/5 throughout. No clonus.
Coordination: No dysmetria or tremor.
Gait: Normal stance, reduced left arm swing
Assessment and Plan:
I. Acute left globus pallidus stroke. Likely etiology small vessel disease.
II. Severe progressive subcortical white matter disease. Differential diagnosis includes vascular versus demyelinating less likely inflammatory or infectious etiologies.
III. Subacute�chronic right periventricular/centrum semiovale
IV. Nicotine addiction
V. R pontine chronic hemorrhage vs cavernoma.
. Vascular encephalopathy
VII. Plavix failure.
- Continue Telemetry monitoring
- Medication administration supervision
- Continue Brilinta 90 mg BID if not cost prohibitive. DAPT should be considered as alternative option
- Lipitor 40 mg QHS.
- Smoking cessation
- Speech therapy, PT for
- The case was discussed with patient's [id number]
- SW follow up
- Outpatient neurology follow
- Please recall neurology services any questions or concerns
I personally reviewed all radiology and labs along with past medical records pertinent to current medical problems. Total time spent in patient care is 35 minutes.
Thank you for allowing us to participate in the care of this patient. Please do not hesitate to contact us with any questions or concerns.
Objective Data
Vital Signs
Temp Pulse Resp BP Pulse Ox
36.8 C 64 18 122/75 98
12/21/24 07:50 12/21/24 07:50 12/21/24 07:50 12/21/24 07:50 12/21/24 07:50
Lab Results
12/19/24 08:23
12/19/24 08:23
Sodium 143 mmol/L (135-145) 12/19/24 08:23
Potassium 4.6 mmol/L (3.5-5.1) 12/19/24 08:23
BUN 24 mg/dl (7-17) H 12/19/24 08:23
Glucose 93 mg/dl (70-99) 12/19/24 08:23
Calcium 10.0 mg/dl (8.4-10.2) 12/19/24 08:23
LDL Cholesterol, Calc 73 mg/dl 12/19/24 08:23
Vitamin B12 Cancelled 12/20/24 10:27
Ur Buprenorphine Negative (Negative) 12/19/24 08:02
Patient Allergies
No Known Allergies Allergy (Verified 12/18/24 11:52)
--- NOTE | 2024-12-21 11:26 | VNURNOTE ---
Home Health Liaison met with patient and daughter in law Ann at bedside to discuss [facility] nurse/therapy, visits, schedule and homebound status. They are agreeable and understand that visits at home will be 2-3 x per week to assess and teach medical
management. [facility] .
[facility].
[2024-12-21 11:42] VITALS: BP 124/79
[2024-12-21 20:35] LABS: Angiotensin-1-converting Enzym 59 U/L (16-85)
[2024-12-22 00:33] LABS: Myeloperoxidase Antibody 0 AU/mL (0-19); Serine Protease-3, IgG 0 AU/mL (0-19)
[2024-12-22 22:05] LABS: Albumin 4.27 g/dL (3.75-5.01); Alpha 1 Globulin 0.27 g/dL (0.19-0.46); SPEP IFE Reflex Not Done; Total Protein-Electrophoresis 7.6 g/dL (6.3-8.2)
[2024-12-24 12:01] LABS: Lyme Antibody Screen, EIA Negative (Negative)
== END 2024-12-21 12:20 | disposition home health service (06) | DRG 66 ==
LOC: 4 WEST ACU 08:10
PROVIDERS: Physician Assistant Medical; ADMITTING PHYSICIAN Student in an Organized Health Care Education/Training Program; CONSULT PHYSICIAN Psychiatry & Neurology Neurology; EMERGENCY PHYSICIAN Student in an Organized Health Care Education/Training Program
DX: I63.9 Cerebral infarction, unspecified (principal); I10 Essential (primary) hypertension; F17.210 Nicotine dependence, cigarettes, uncomplicated; I63.81 Other cerebral infarction due to occlusion or stenosis of small artery; Z79.02 Long term (current) use of antithrombotics/antiplatelets; E53.8 Deficiency of other specified B group vitamins; Z82.49 Family history of ischemic heart disease and other diseases of the circulatory system
CPT/HCPCS: 70450; 70496; 70553; 80048; 80053; 80061; 80306; 81003; 81015; 82164; 82550; 82607; 83516; 83735; 84155; 84165; 84443; 84484; 85025; 85027; 85652; 86038; 86140; 86618; 87086; 87389; 92523; 92610; 93005; 95816; 97129; 97162; 97166; 97530; 99285; 99406; A9575; Q9967

== ENCOUNTER 2025-04-01 23:29 | Observation (INO) | payer BC, SELFPAY ==
[2025-04-01 14:56] VITALS: BP 148/110
[2025-04-01 15:34] LABS: Hematocrit 39.7 % (37.0-47.0); Hemoglobin 13.3 g/dL (12.0-16.0); Mean Corp Hgb Conc. 33.5 g/dL (33.0-37.0); Mean Corpuscular Volume 91.1 fL (81.0-99.0); Nucleated Red Blood Cells % 0 %; Platelet Count 290 10^3/uL (130-400); Red Cell Dist. Width 13.2 % (11.5-14.5)
[2025-04-01 15:49] LABS: ALT (SGPT) 57 U/L (0-35); AST (SGOT) 34 U/L (14-36); Albumin 4.9 g/dl (3.5-5.0); Alkaline Phosphatase 99 U/L (38-126); Blood Urea Nitrogen 10 mg/dl (7-17); Calcium 9.7 mg/dl (8.4-10.2); Carbon Dioxide 25 mmol/L (22-30); Chloride 108 mmol/L (98-107); Glucose 101 mg/dl (70-99); Potassium 3.9 mmol/L (3.5-5.1); Sodium 141 mmol/L (135-145); Total Protein 8.3 g/dl (6.3-8.2); eGFR > 60.00
[2025-04-01 19:37] VITALS: BP 132/90
[2025-04-01 20:00] VITALS: BP 147/96
--- NOTE | 2025-04-01 20:05 | ED.GENMED ---
History of Present Illness
General
Chief Complaint: Dizziness
Source: patient
Exam Limitations: none
Time Seen by Provider: 04/01/25 19:40
History of Present Illness
History of Present Illness:
64-year-old female presents with the onset of dizziness and nausea this morning around 630. She feels unsteady on her feet when she walks. There is no double vision or blurry vision. The dizziness is hard to describe but does at times feel like
she going to pass out and does at times feel she is spinning. She denies any unilateral weakness. She has a history of stroke. She is on Brilinta. Her [id number] who accompanies her states she has presented this way in the past when she has
had other strokes. Most recently she was here in December had an MRI that showed several acute infarcts. CT angio at that time showed no significant stenosis. She states she has been taking her statin and her Brilinta.
Past History
Past History
ED Past Medical History: CVA
ED Past Surgical History: None
Social History
Tobacco: Non-smoker
Alcohol: None
Drug: None
Personal:
Living: alone
Employment: Employed
Phy Exam
Physical Exam
Physical Exam:
General: Well-appearing female no acute respiratory distress
HEENT: Normocephalic pupils equal round react to light no nystagmus face is symmetric
Heart: Regular rate and rhythm
Lungs: Clear no wheeze
Neurologic exam: Alert and oriented x 3 finger-nose [id number] intact no drift on exam. No hemineglect. No dysarthria or aphasia. [place] without any reproducible symptoms.
Musculoskeletal exam: Spine is nontender
Skin is warm no rash
Course
Orders/Labs/Results
Orders:
Orders
04/01/25 14:51
CT Head W/o Iv Contrast Urgent
Comment:
Reason For Exam: dizziness
04/01/25 14:53
ECG [Electrocardiogram (*1)] Urgent
Reason for Study: Vertigo / Dizzy
EKG- Treatment ONCE
04/01/25 15:24
Comprehensive Metabolic Panel Urgent
04/01/25 15:25
Complete Blood Count/With Diff Urgent
04/01/25 20:02
CT Head & Neck Angio W/wo IV Urgent
Comment:
Reason For Exam: dizzy, history of CVA
Abnormal Lab Results
04/01/25
15:24
Chloride 108 H mmol/L
(98-107)
Glucose 101 H mg/dl
(70-99)
ALT 57 H U/L
(0-35)
Total Protein 8.3 H g/dl
(6.3-8.2)
04/01/25 15:25
04/01/25 15:24
Vital Signs
Initial and Last Documented VS:
Initial Vital Signs
Temp Pulse Resp BP Pulse Ox
98.4 F 113 16 148/110 98
04/01/25 14:56 04/01/25 14:56 04/01/25 14:56 04/01/25 14:56 04/01/25 14:56
Last Documented Vital Signs
Temp Pulse Resp BP Pulse Ox
98.1 F 80 17 147/96 100
04/01/25 19:37 04/01/25 20:06 04/01/25 20:06 04/01/25 20:06 04/01/25 20:09
MDM/Problems Addressed
Differential Diagnosis Includes:
Dizziness. Differential could include vertigo versus stroke versus anemia or electrolyte abnormality versus dehydration
Presentation, per family, is similar to her prior presentation with other strokes. Plain CT head was ordered through triage which is negative. I reviewed the chart. She had an MRI of her brain and a CT angio in December of this year. CT angio
showed no significant stenosis.
Concerning symptoms similarity between prior strokes. Will perform another CT angio today.
*Pulse Oximetry
SaO2: 100
Oxygen Mode of Delivery: Room air
Patient hypoxic: no
*Critical Care Note
Total Time (30-74mins, 75-104mins- exclusive of procedures): Not Applicable
Update Note
Update Note:
Patient reexamined many times still not back to baseline. Still describes a dizziness family notes in room that her speech different today than it has been. History of CVA in the past and she describes very similar symptoms. Long discussion was
had with patient and family regarding treatment options but will keep in hospital for further evaluation. CT angio abdomen head and neck without acute finding
ED Attending Note
-
Portions of this chart may have been created with voice recognition software.� Occasional wrong word or��sound alike� substitutions may have occurred due to the inherent limitations of voice recognition software.
Discharge Plan
Departure
Patient Disposition: Admit
Date of Disposition: 04/01/25
Time of Disposition: 22:40
Presentation/result/management discussed w/ accepting MD/DO: Hospitalist
Discharge Problem:
Ataxia
Prescriptions:
No Action
cyanocobalamin (vitamin B-12) 1,000 mcg Tablet
1,000 mcg PO DAILY
cholecalciferol (vitamin D3) [Vitamin D3] 25 mcg (1,000 unit) Tablet
25 mcg PO DAILY
magnesium oxide 400 mg magnesium Tablet
400 mg PO DAILY
nifedipine 90 mg Tablet Extended Release
90 mg PO DAILY
omega 9-rxn-orn-fish oil [Fish Oil] 60-90-500 mg Capsule
1 cap PO DAILY
atorvastatin 40 mg tablet
40 mg PO DAILY
ticagrelor [Brilinta] 90 mg Tablet
90 mg PO BID Qty: 60 0RF
Referrals:
Dinorah Giron MD, Resident [Family Provider, General]
Interventions
Interventions:
*Risk Screen - Suicide Last Done: 04/01/25 14:56
*General Assessment Last Done: 04/01/25 19:48
*Neglect/Abuse Screening Last Done: 04/01/25 14:56
*ED- Fall Risk Assessment Last Done: 04/01/25 19:48
*ED COVID-19 Vaccine History Last Done: 04/01/25 19:48
ED- Neurological Assessment Last Done: 04/01/25 19:48
Discharge Date and Time
Print Language: CZECH
[2025-04-01 20:06] VITALS: BP 147/96
[2025-04-01 20:16] VITALS: BMI 25.1
--- NOTE | 2025-04-01 22:54 | HPS.HSE ---
Addendum entered and electronically signed by Davy Denney DO 04/01/25 23:37:
Patient seen and examined independently. Agree with findings and plan as set forth by MARIA LUISA Patel.
Patient is a 64y F with PMH significant for hypertension and prior CVA who presents to ED complaining of feeling unsteady and word-finding difficulty. Patient reports dizziness and nausea since early this AM. She has been off-balance all day.
Later in the day she noted some word-finding difficulty. Patient states that current symptoms are identical to those she had in December when she was diagnosed with a stroke. She has been on Brilinta since that time. Patient denies any recent
illness including fevers / chills, cough, N/V/D, etc.
Ass:
Ataxia / Aphasia
ASCVD / CVA
Benign Hypertension
Plan:
Observe overnight for further evaluation and treatment.
? new CVA v recrudescence of prior symptoms.
Follow serial neuro exams.
CT / CTA in the ED with no acute abnormalities noted.
Check MRI in the AM.
PT / OT / Speech evaluations.
Continue Brilinta. Add ASA for now.
Continue statin and BP medications and adjust as needed.
Original Note:
Family Physician
-
Family Physician: Dinorah Giron MD, Resident
Chief Complaint
-
dizzy
History of Present Illness
64-year-old female with PMH for CVA,HTN presents with the onset of dizziness and nausea since this morning around 630. She feels unsteady on her feet when she walks. patient was off balance. she was also having trouble finding words. she has
residual expressive aphasia from previous stroke. There is no double vision or blurry vision. She denies any unilateral weakness. She has a history of stroke. She is on Brilinta. denied SAMAYOA, fever, chills, congestion, cough. denied chest pain,
sob. denied abdominal pain,n,v,d. denied dysuria or hematuria.
CT and CTA negative. admitting for further management.
Medical History
Past Medical History
Past Medical History: Reports Other
Additional Past Medical History:
Arterial ischemic stroke
Hypercholesterolemia
Hypertension
Cerebral infraction
Past Surgical History: Reports None
Social History
Tobacco: Former Smoker
Alcohol: None
Drug: None
Family History
Family History: Not pertinent
Allergies / Home Medications
Allergies reflects when Allergies were last updated in [employer].
Home Medications with original date entered in [employer]
Allergy/Medication List:
Allergies
Allergy/AdvReac Type Severity Reaction Status Date / Time
No Known Allergies Allergy Verified 04/01/25 14:57
Home Medications
cholecalciferol (vitamin D3) 25 mcg (1,000 unit) tablet (Vitamin D3) 25 mcg PO DAILY Supplement 09/07/24
cyanocobalamin (vitamin B-12) 1,000 mcg tablet 1,000 mcg PO DAILY Supplement 09/07/24
magnesium oxide 400 mg PO DAILY Supplement 09/07/24
atorvastatin 40 mg tablet 40 mg PO DAILY High Cholesterol 12/18/24
nifedipine 90 mg tablet,extended release 90 mg PO DAILY Blood Pressure 12/18/24
omega 5-fro-hdn-fish oil 60 mg-90 mg-500 mg capsule (Fish Oil) 1 cap PO DAILY Supplement 12/18/24
ticagrelor 90 mg tablet (Brilinta) 90 mg PO BID #60 tabs 12/21/24
Review of Systems
-
Constitutional: Reports No Symptoms
EENT: Reports No Symptoms
Respiratory: Reports No Symptoms
Cardiac: Reports No Symptoms
Abdomen/GI: Reports No Symptoms
: Reports No Symptoms
Musculoskeletal: Reports No Symptoms
Skin: Reports No Symptoms
Neurological: Reports Dizzy and Other (trouble finding words)
Endocrine: Reports No Symptoms
Hematologic/Lymphatic: Reports No Symptoms
Psych: Reports No Symptoms
Physical Exam
Vital Signs
Vital Signs
Temp Pulse Resp BP Pulse Ox
98.1 F 80 17 147/96 100
04/01/25 19:37 04/01/25 20:06 04/01/25 20:06 04/01/25 20:06 04/01/25 20:09
Physical Exam
General: Well Developed, Well Nourished and No Apparent Distress
HEENT: NormoCephalic, Moist mucous membranes and Atraumatic
Respiratory: Clear
Cardiac: S1/S2 and Regular Rhythm; No Murmur or Rub
GI: Soft, Non Tender, Non Distended and Normal Bowel Sounds; No Organomegaly
Rectal: Deferred by Provider
Musculoskeletal: No Clubbing, No Cyanosis and No Edema
Skin: No Rash
Neuro: AO x 3 and Nonfocal/grossly intact
Psych: Calm
Laboratory Results
-
04/01/25 15:25
04/01/25 15:24
Laboratory Results
Total Bilirubin 0.7 mg/dl (0.2-1.3) 04/01/25 15:24
AST 34 U/L (14-36) 04/01/25 15:24
ALT 57 U/L (0-35) H 04/01/25 15:24
Alkaline Phosphatase 99 U/L (38-126) 04/01/25 15:24
Data Reviewed
-
CT Scan: Report Reviewed by me
Lab Data: Labs Reviewed by me
Impression/Plan
-
# Disequilibrium/expressive aphasia rule out TIA/CVA
- CTA with impression of Mild cervical carotid plaque formation, as described. On the right, approximately 50% stenosis of the proximal right ICA. No hemodynamically significant stenosis involving the left cervical common or internal carotid artery.
No occlusion. No dissection.
- Head CT with no acute finding
-Obtain MRI
-Atorvastatin and Brilinta continued
-asa added
-Neurology consulted
# Essential hypertension
-Nifedipine continued
#DVT prophylaxis
- SCD
#CODE STATUS
- Full code
[2025-04-01 23:18] VITALS: BP 152/84
[2025-04-01] MEDS: LOW STRENGTH ASPIRIN 81 MG PO (23:52)
[2025-04-01] MEDS: BRILINTA 90 MG PO (23:52)
[2025-04-01] MEDS: FLUSH (NSS) 1 FLUSH IV (23:53)
[2025-04-02] VITALS (12 sets, daily range): BP systolic 90–133; BP diastolic 61–99; PULSE 60–94; O2SAT 99; BMI 27.1
[2025-04-02 05:38] LABS: HDL Cholesterol 67 mg/dl; LDL Cholesterol, Calculated 76 mg/dl; Very Low Density Lipoprotein 23 mg/dl (0-30)
--- NOTE | 2025-04-02 09:20 | CM ---
CM reviewed chart and met with pt bedside in ED. Pt lives in multistory home with 4 roommates. 3 [place], BR/BA on second floor.
Pt is independent in ADLs, personal care and ambulation. Does not use assistive device. Still driving, recently retired. Does have shower chair and grab rails in shower, no other DME. Roommates do provide some assistance, her DIL lives nearby and
also provides support, her son is in the and away at this time.
[facility] after 12/28 admit, not sure if she wants VN now, concerned about cost.
PCP: Dinorah Merrill - [facility]
Pharmacy: [facility]
CM will continue to follow for discharge planning needs.
--- NOTE | 2025-04-02 09:43 | W.PN.HOSP.TC ---
Today's Communication/Plan
-
Discharge today
Assessment / Plan
Assessment / Plan
HPI: 64y F with PMH significant for hypertension and prior CVA who presents to ED complaining of feeling unsteady and word-finding difficulty. Patient reports dizziness and nausea since early this AM. She has been off-balance all day. Later in
the day she noted some word-finding difficulty. Patient states that current symptoms are identical to those she had in December when she was diagnosed with a stroke. She has been on Brilinta since that time. Patient denies any recent illness
including fevers / chills, cough, N/V/D, etc.
# Disequilibrium/expressive aphasia rule out TIA/CVA
- CTA with impression of Mild cervical carotid plaque formation, as described. On the right, approximately 50% stenosis of the proximal right ICA. No hemodynamically significant stenosis involving the left cervical common or internal carotid artery.
No occlusion. No dissection.
- Head CT with no acute finding, brain MRI negative
- Appreciate neurology input, recommend adding aspirin 81 mg daily for total of 21 days, she has 19 days left
- Continue Brilinta, increase atorvastatin to 80 mg at bedtime
- PT recommended home PT, followed by outpatient vestibular and balance PT
- Discharge today per patient request
# Essential hypertension
-Nifedipine continued
DVT prophylaxis- SCD
CODE STATUS- Full code
Updated daughter at bedside 04/02
Physical Exam
General: No acute distress
HEENT: Normocephalic, Atraumatic, EOMI, MMM
Respiratory: Clear to Auscultation bilaterally
Cardiac: Normal S1/S2, Regular Rate and Rhythm
GI: Soft, Nontender, Nondistended, Normal Bowel Sounds
Extremities: No Clubbing, Cyanosis, or Edema
Neuro: Nonfocal/Grossly Intact
Psych: Calm, Cooperative
Anticipated Discharge: Today
Subjective/Interval History
-
Date of Service: April 02, 2025
Patient reports her speech is 90% back to normal. Continues to have dizziness with walking. No fever, no vomiting.
Objective Data
-
Vital Signs:
Vital Signs
Temp Pulse Resp BP Pulse Ox
98.8 F 53 17 97/62 96
04/02/25 07:00 04/02/25 07:00 04/02/25 07:00 04/02/25 07:00 04/02/25 07:00
--- NOTE | 2025-04-02 09:55 | CON.NEURO ---
Addendum entered and electronically signed by Rizwan Antoine MD 04/02/25 11:15:
Studies reviewed.
I have personally examined the patient. I reviewed and agree with the ARTILLERY SPECIALIST's Note.
My addenda:
Awake, alert, interactive. No acute distress.
Speech intact.
Follows 2-step requests w/o difficulty. No tremor.
Extra-ocular movements grossly intact.
Facial movements full and symmetric. Hearing intact to normal conversational volume.
Normal UE movements bilaterally.
Neck: full ROM.
Chest: no dyspnea
Heart: no JVD
Ext: (-) Clubbing, (-) Cyanosis, (-) Edema
IMPRESSIONS/RECOMMENDATIONS:
Abrupt onset of gait ataxia in a patient with prior ischemic bilateral basal ganglial strokes
Repeated MRI of the brain failed to demonstrate an acute ischemic lesion; it is possible that a posterior circulation lesion could be not visualized, but not also evident on examination makes it less likely
Continue patient's usual ticagrelor
Add aspirin 81 mg daily for the next 21 days then discontinue
Advance atorvastatin dosing from 40 mg to 80 mg due to persistently elevated LDLs (greater than 70)
Rehabilitation evaluations and treatment
Check orthostatic blood pressures
Check blood work for potential metabolic abnormalities producing symptoms
D/W patient / family
All questions answered.
Will continue to follow pending results.
Original Note:
Documented by User: Tiffany Messina NP 04/02/25 11:00
Neuro Assessment/Plan
Assessment
The patient is a 64-year-old female with past medical history of hypertension and prior CVA presented to [facility] on 04/01/2025 with the onset of dizziness and nausea.
Brain MRI 04/02/2025: No acute intracranial abnormality noted.
Head and neck CTA 04/01/2025:
Stable intracranial findings, as described. No acute intracranial hemorrhage.
Mild cervical carotid plaque formation, as described. On the right, approximately 50% stenosis of the proximal right ICA. No hemodynamically significant stenosis involving the left cervical common or internal carotid artery. No occlusion. No
dissection.
The cervical and intradural vertebral arteries are patent.
Mild cavernous ICA calcified plaque without hemodynamically significant stenosis.
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
No cerebral aneurysm or hemodynamically significant stenosis. No occlusion.
Head CT 04/01/2025: No acute intracranial abnormality noted.
Head CTA 12/20/2024:
1. No acute intracranial abnormality identified. Chronic right periventricular white matter infarct. Subacute left basal ganglia infarcts as seen on MRI of one day prior. No intracranial hemorrhage.
2. No major branch vessel occlusion, flow-limiting stenosis, or dissection identified.
3. Left intracranial internal carotid proximally 2 mm focal outpouching as above, tiny aneurysm versus vessel infundibulum.
Brain MRI 12/19/2024:
Multiple small acute infarcts associated with the left basal ganglia, specifically along the posterior and superior margin of the left globus pallidus.
Progressive encephalomalacia involving a small focal 1 cm remote infarct in the right periventricular white matter. Stable linear focus of encephalomalacia in the inferior lateral left parietal lobe, which may also represent an old linear infarct.
Possible tiny chronic lacunar infarct involving the mid christopher.
Progressive moderate to large volume of periventricular, subcortical white matter, and deep white matter leukoaraiosis. No associated abnormal enhancement. Possible considerations include progressive demyelination, chronic ischemic
change/hypertensive microangiopathy in the proper clinical setting, or vasculitis.
Brain MRI 09/08/2024: Moderate-sized nonhemorrhagic acute/subacute infarct in the right periventricular region/centrum semiovale. No focal hemodynamically significant stenosis, aneurysm or occlusion.
Labs: Hgb A1C 5.7, Cholesterol 166, LDL 76
Plan
Impression:
I. recrudescence of stroke symptoms given brain MRI negative for acute CVA vs TIA although less likely given persistence of symptoms
II. vertigo
-check orthostatic vital signs BID, encourage fluid intake
-PT/OT/ST evaluations
-LDL 76, increase atorvastatin from 40 mg to 80 mg with goal LDL<70
-check P2Y12 to ensure Ticagrelor responder
-check blood work to look for metabolic and vitamin abnormalities
-may benefit from vestibular therapy
-DVT prophylaxis
All questions encouraged and answered, plan of care discussed with Dr. Antoine, hospitalist, patient and family
Consultation
Order
Date of Consultation: 04/02/25
Requesting Provider: hospitalist
Reason for Consult: dizziness
Subjective/Objective
Subjective Data
Date of Service: April 02, 2025
The patient is a 64-year-old female with past medical history of hypertension and prior CVA presented to [facility] on 04/01/2025 with the onset of dizziness and nausea. She states that her dizziness 'not spinning, feeling like you want to throw up.' She
went to bed at 10:30 on Tuesday and woke up at 6:30 on Tuesday felt dizziness and nauseous. Lay down and did not improve symptoms. Denies issues with swallowing. Feels speech is different and having word finding difficulties but this has improved.
Denies weakness in upper or lower extremities. Denies weakness in head or neck. Denies headache. Denies issues with bladder/bowel. Admits to hearing loss bilaterally. Denies tinnitus or fullness in ears. She feels unsteady on her feet when she
walks. There is no double vision or blurry vision. She denies any unilateral weakness. She has a history of stroke. She is on Brilinta. Her [id number] who accompanies her states she has presented this way in the past when she has had other
strokes. Most recently she was here in December had an MRI that showed several acute infarcts. CT angio at that time showed no significant stenosis. She states she has been taking her statin and her Brilinta. In the ED, her head and neck CTA showed
mild cervical carotid plaque formation, as described. On the right, approximately 50% stenosis of the proximal right ICA, no hemodynamically significant stenosis involving the left cervical common or internal carotid artery, no occlusion, no
dissection. Her brain MRI showed no acute intracranial abnormality.
Adapted from outpatient neurology note by Tahmina GLASS on 01/30/2025:
'This is a 64 yo woman with hx tobacco use, essential HTN, recent admission and 09/08-09/09/24 for acute ischemic stroke, presents to the ER after witnessed episode of syncope on 12/18/2024.
Her previous admission she presented to after 3 days of ataxic gait 09/08/2024.
She was discharged on DAPT for 21 days after first admission in September and was continued on Plavix. After this most recent admission patient was placed on Brilinta BID dosing (first stroke on ASA and second stroke while on Plavix).
MRI brain, MRA head and neck09/08/2024
IMPRESSION:
Moderate-sized nonhemorrhagic acute/subacute infarct in the right periventricular region/centrum semiovale.
No focal hemodynamically significant stenosis, aneurysm or occlusion.
Echo 09/24/2024
Normal biventricular size and systolic function without regional wall motion
abnormality.
LV ejection fraction is 60-65% by visual assessment.
Normal diastolic function.
No significant valvular disease.
No pericardial effusion.
No prior study available for comparison.
MRI 12/19/24
IMPRESSION:
Multiple small acute infarcts associated with the left basal ganglia, specifically along the posterior and superior margin of the left globus pallidus.
Progressive encephalomalacia involving a small focal 1 cm remote infarct in the right periventricular white matter. Stable linear focus of encephalomalacia in the inferior lateral left parietal lobe, which may also represent an old linear infarct.
Possible tiny chronic lacunar infarct involving the mid christopher.
Progressive moderate to large volume of periventricular, subcortical white matter, and deep white matter leukoaraiosis. No associated abnormal enhancement. Possible considerations include progressive demyelination, chronic ischemic
change/hypertensive microangiopathy in the proper clinical setting, or vasculitis.
CTA
IMPRESSION:
1. No acute intracranial abnormality identified. Chronic right periventricular white matter infarct. Subacute left basal ganglia infarcts as seen on MRI of one day prior. No intracranial hemorrhage.
2. No major branch vessel occlusion, flow-limiting stenosis, or dissection identified.
3. Left intracranial internal carotid proximally 2 mm focal outpouching as above, tiny aneurysm versus vessel infundibulum.
LDL 73
HgbA1c 6.0
Today she reports she is almost at baseline
she has some residual expressive aphasia. Denies residual weakness, difficulty swallowing, and paraesthesias. Currently working with speech therapy. Was discharged from PT and OT. She did follow up wit hematology for hypercoagulable work-up, still
needs to have blood work completed. Has not yet followed with hematology.'
Objective Data
Vital Signs
Temp Pulse Resp BP Pulse Ox
98.8 F 53 17 97/62 96
04/02/25 07:00 04/02/25 07:00 04/02/25 07:00 04/02/25 07:00 04/02/25 07:00
Lab Results
04/01/25 15:25
04/01/25 15:24
Sodium 141 mmol/L (135-145) 04/01/25 15:24
Potassium 3.9 mmol/L (3.5-5.1) 04/01/25 15:24
BUN 10 mg/dl (7-17) 04/01/25 15:24
Glucose 101 mg/dl (70-99) H 04/01/25 15:24
Calcium 9.7 mg/dl (8.4-10.2) 04/01/25 15:24
LDL Cholesterol, Calc 76 mg/dl 04/02/25 04:51
Patient Allergies
No Known Allergies Allergy (Verified 04/01/25 14:57)
CVA Assessment
Onset of Stroke Symptoms
Onset of symptoms known: Yes
Date of onset of symptoms: 04/01/25
Time of onset of symptoms: 06:30
Time pt last seen normal is known: Yes
Date last time pt seen normal: 04/01/25
Time last time pt seen normal: 06:30
NIH Stroke Score
Level of Consciousness: 0 - Alert
LOC Questions: 0-Answers both correctly
LOC Commands: 0-Performs both correctly
Best Horizontal Gaze: 0-Normal
Visual Rodriguez: 0=Normal, no visual loss
Facial Palsy: 0=Normal, symmetrical
Motor - Right Arm: 0=No drift 10 seconds
Motor - Left Arm: 0=No drift 10 seconds
Motor - Right Le-No drift 5 seconds
Motor - Left Le-No drift 5 seconds
Limb Ataxia: 0-Absent
Sensation: 0-Normal
Best Language: 0-No aphasia
Dysarthria: 0-Normal
Extinction and Inattention: 0-No abnormality
NIH Total Score:: 0
Tenecteplase Contraindications
Inclusion and Exclusion criteria reviewed: Yes
IAT Contraindications: >6 hrs from onset/last seen normal and NIHSS < 6
Modified Cheryl Score (MRS)
-
Modified [place] Scale (mRS): No significant disability. Able to carry out usual activities.
Score: 1
Review of Systems
-
History Source: Patient
Constitutional: No Symptoms
EENT: Hearing Loss
Respiratory: No Symptoms
Cardiac: No Symptoms
Abdomen/GI: Nausea
Genitourinary: No Symptoms
Musculoskeletal: No Symptoms
Skin: No Symptoms
Neuro: Dizzy
Endocrine: No Symptoms
Physical Exam
-
General: No Apparent Distress, Comfortable and Appears Stated Age
HEENT: Normocephalic, Atraumatic and Anicteric
Neck: Full Range of Motion
Respiratory: No Dyspnea
Cardiac: No JVD
GI: Non-distended
Skin: Unremarkable
Extremities: No Clubbing, No Cyanosis and No Edema
Psych: Unremarkable
Extended Neurological Exam
Mood & Affect: Mood Unremarkable
Attention Span & Concentration: Awake, Alert, Interactive, No Difficulty with 2 Step Request and Other (oriented to place, month and year)
Memory: Unremarkable
Tremor: Hand Tremor Absent and Head Tremor Absent
Involuntary Movement: None
Speech: Quality Unremarkable, Quantity Unremarkable and Rate of Production Unremarkable
Cranial Nerve II: Left Eye: Pupillary Reactivity Unremarkable, Pupillary Size Unremarkable and Visual Rodriguez Intact
Cranial Nerve II: Right Eye: Pupillary Reactivity Unremarkable, Pupillary Size Unremarkable and Visual Rodriguez Intact
Cranial Nerves III, IV, : Extraocular Movement: Extraocular Movement Full in all Directions
Cranial Nerve VII: Facial Symmetry: Normal Facial Symmetry
Cranial Nerve VIII: Hearing: Grossly Reduced
Cranial Nerves IX, X: Palate Movement: Palate Elevation Symmetric
Muscle Strength, Overall: Full Throughout
Pronator Drift: No Drift in Upper Extremities and No Drift in Lower Extremities
Coordination: Obichu-[id number]-[id number] Testing Unremarkable and Reaches for Objects without Difficulty
Data Reviewed
-
CT-A: Report Reviewed and Image Reviewed
CT Head: Report Reviewed and Image Reviewed
MRI Head: Report Reviewed and Image Reviewed
Labs: Report Reviewed
Lipid Profile: Report Reviewed
HgbA1C: Report Reviewed
Reviewed with: Physician, Patient and Family
Old Records: Summarized
Medications
-
Active Medications
Generic Name Dose Route Start Last Admin
Trade Name Freq PRN Reason Stop Dose Admin
Acetaminophen 650 mg 04/02/25 01:55
Acetaminophen 650 Mg Rectal Suppository RECTAL 04/30/25 01:54
Q4HPRN PRN
SAMAYOA, mild pain, or temp >100.4F
Acetaminophen 650 mg 04/02/25 01:55
Acetaminophen 325 Mg Tablet PO 04/30/25 01:54
Q4HPRN PRN
SAMAYOA, mild pain, or temp >100.4F
Aspirin 81 mg 04/02/25 10:00
Aspirin 81 Mg Chewable Tablet PO 04/30/25 09:59
DAILY PAL
Atorvastatin Calcium 80 mg 04/02/25 09:15
Atorvastatin (Lipitor) 80 Mg Tablet PO 04/30/25 09:14
DAILY PAL
Magnesium Oxide 500 mg 04/02/25 08:00
Magnesium Oxide 500 Mg Tablet PO 04/30/25 07:59
DAILY PAL
Nifedipine 90 mg 04/02/25 08:00
Nifedipine 30 Mg Extended Release Tablet PO 04/30/25 07:59
DAILY PAL
Sodium Chloride 0 flush 04/01/25 23:00 04/01/25 23:53
Sodium Chloride 0.9% (Flush) Syringe IV 04/29/25 22:59 1 flush
PER PROTOCOL PAL Administration
Ticagrelor 90 mg 04/02/25 08:00
Ticagrelor (Brilinta) 90 Mg Tablet PO 04/30/25 07:59
BID PAL
Home Medications
�Medication �Instructions �Recorded
cholecalciferol (vitamin D3) 25 25 mcg PO DAILY Supplement 09/07/24
mcg (1,000 unit) tablet (Vitamin
D3)
cyanocobalamin (vitamin B-12) 1,000 mcg PO DAILY Supplement 09/07/24
1,000 mcg tablet
magnesium oxide 400 mg PO DAILY Supplement 09/07/24
atorvastatin 40 mg tablet 40 mg PO DAILY High Cholesterol 12/18/24
nifedipine 90 mg tablet,extended 90 mg PO DAILY Blood Pressure 12/18/24
release
omega 8-pbr-kxe-fish oil 60 mg-90 1 cap PO DAILY Supplement 12/18/24
mg-500 mg capsule (Fish Oil)
ticagrelor 90 mg tablet (Brilinta) 90 mg PO BID #60 tabs 12/21/24
Past History
Past History
ED Past Medical History: CVA
ED Past Surgical History: None
Family/Social History
Tobacco: Non-smoker
Alcohol: None
Drug: None
Personal:
Living: alone
Employment: Employed

Documented by User: Rizwan Antoine MD 04/02/25 11:05
CVA Assessment
NIH Stroke Score
NIH Total Score:: 0
Modified Cheryl Score (MRS)
-
Score: 1
[2025-04-02 10:16] LABS: Glycohemoglobin (HgbA1c) 5.7 % (4.0-5.6)
[2025-04-02] MEDS: LOW STRENGTH ASPIRIN 81 MG PO (12:28)
[2025-04-02] MEDS: PROCARDIA XL (EXTENDED RELEASE) 90 MG PO (12:33)
[2025-04-02] MEDS: BRILINTA 90 MG PO (12:35)
[2025-04-02] MEDS: MAGNESIUM OXIDE 500 MG PO (12:35)
--- NOTE | 2025-04-02 12:38 | W.DCSUMMARY ---
Discharge Summary
Discharge Data
Date of Admission: 04/01/25
Date of Discharge: 04/02/25
-
Pending Results: No
Hospital Course
Discharge diagnosis:
Transient aphasia
Ataxia
Essential hypertension
Glucose intolerance
Consults: Neurology
Brain MRI:
Old bilateral basal ganglia infarcts redemonstrated. Axial FLAIR sequence otherwise demonstrates stable moderate hyperintensity within the periventricular and deep subcortical white matter, likely related to underlying chronic small vessel ischemic
changes.
No new suspicious abnormal parenchymal signal intensity, mass effect, midline shift, or extra-axial collection. No hydrocephalus. No abnormal signal on diffusion imaging to suggest acute infarct.
Trace bilateral maxillary sinus mucosal thickening.
The vascular structures at the skull base are unremarkable.
Hospital course:
64-year-old female with a past medical history of hypertension and stroke who was admitted for transient aphasia and ataxia. She reports dizziness, nausea, and feeling off balance. She was seen in conjunction with neurology, brain MRI was negative
for new stroke, does show her previous old stroke. She is currently on atorvastatin 40 mg daily, and Brilinta. Neurology recommends treatment with aspirin 81 mg daily for 21 days, and increasing her atorvastatin to 80 mg daily. Patient's aphasia
resolved, she did continue to have some ataxia. She was seen in conjunction with PT, who recommended home PT followed by transitioning to outpatient vestibular rehab and balance PT.
Patient also has glucose intolerance, hemoglobin A1c is 5.7. Recommend dietary modification.
She is medically stable for discharge. She needs to follow-up with her PCP in 1 week.
Disposition: Home with home PT
Discharge planning: Required 38 minutes
Discharge Plan
-
Patient Disposition: Home with Home Care
Discharge Diagnosis/Procedures: Expressive aphasia, ataxia, history of stroke, prediabetes
Diet: Diabetic, Carb Controlled
Activity Restrictions/Additional Instructions:
You have prediabetes. Recommend you eating a low carbohydrate diet, so it does not progress to full-blown diabetes.
Neurology recommends taking aspirin 81 mg daily for 19 more days.
Neurology also recommends increasing your atorvastatin to 80 mg daily.
Follow-up with your primary care provider in 1 week.
Instructions: Lowering your risk of prediabetes and type 2 diabetes, Diabetes and diet
Referrals:
Dinorah Giron MD, Resident [Family Provider, General] - in one week
Prescriptions:
New
atorvastatin 80 mg Tablet
80 mg PO DAILY Qty: 30 0RF
aspirin 81 mg Tablet,Chewable
81 mg PO DAILY Qty: 19 0RF
Rx Instructions:
Take for 19 days, then stop
Continued
cyanocobalamin (vitamin B-12) 1,000 mcg Tablet
1,000 mcg PO DAILY
cholecalciferol (vitamin D3) [Vitamin D3] 25 mcg (1,000 unit) Tablet
25 mcg PO DAILY
magnesium oxide 400 mg magnesium Tablet
400 mg PO DAILY
nifedipine 90 mg Tablet Extended Release
90 mg PO DAILY
omega 4-mpc-iot-fish oil [Fish Oil] 60-90-500 mg Capsule
1 cap PO DAILY
ticagrelor [Brilinta] 90 mg Tablet
90 mg PO BID Qty: 60 0RF
Discontinued
atorvastatin 40 mg tablet
40 mg PO DAILY
Discharge Orders:
Discharge Patient (As Directed); Ordered 04/02/25
Ordered By: Ananda Segal
Discharge Date and Time
Discharge Date/Time: 04/02/25 17:30
Print Language: SYRIAC
[2025-04-02 12:43] LABS: Iron 82 ug/dl (37-170)
--- NOTE | 2025-04-02 12:56 | PTOTSP ---
Speech Therapy Evaluation
Pt seen for bedside swallow evaluation. Pt's swallow within functional limits for regular solids and thin liquids given small bites, slow rate, and alternating solids/liquids. Pt had intermittent throat clearing with solids, however, pt reports
difficulty with dry textures prior to admission. Pt's WBC WFL, on room air, and no acute abnormality on Head CT and MRI.
Pt with previous CVA in Sep 2024. Mild residual dysarthria from previous CVA, however, speech is 100% intelligible. Pt reported mild anomia yesterday but reports it has improved and appears to be at baseline. Pt with previous mild language
impairment based on results of speech evaluation from December 2024 at [facility]. ST will continue to monitor speech/language to determine if an assessment is warranted.
Recommendations:
1. Initiate Diet IDDSI Level 7 Regular solids and thin liquids
2. Medication as tolerated
3. General aspiration precautions, including small bites, slow rate, alternating solids/liquids
4. Follow up from ST to monitor diet tolerance and to determine if a language assessment is warranted.
--- NOTE | 2025-04-02 13:00 | CM ---
Patient seen bedside with daughter in law.
PT recommending home with VN.
Options discussed, chose [facility].
TT to liaison.
Daughter in law will transport.
Plan: Home with [facility]N
[2025-04-02 13:15] LABS: TSH 2.00 uIU/ml (0.47-4.68)
[2025-04-02 13:19] LABS: Ferritin 275.0 ng/ml (11.1-264.0)
[2025-04-02 13:19] LABS: VerifyNow PRU 9 PRU (180-376)
[2025-04-02 13:34] LABS: Vitamin B12 > 1000 pg/ml (239-931)
--- NOTE | 2025-04-02 14:13 | VNURNOTE ---
Home Health Liaison met with patient and daughter in law at bedside to discuss [facility] nurse/therapy, visits, schedule and homebound status. Patient is agreeable and understands that visits at home will be 2-3 x per week to assess and teach medical
management.
Patient is aware that [facility] will contact them for start of care in 1-2 days after discharge from .
[facility] referral completed in [facility].
== END 2025-04-02 17:30 | disposition home health service (06) ==
LOC: 1 ACUTE 23:29
PROVIDERS: Emergency Medicine; Nurse Practitioner; Registered Nurse; ADMITTING PHYSICIAN Hospitalist; ATTENDING PHYSICIAN Family Medicine; CONSULT PHYSICIAN Psychiatry & Neurology Neurology; EMERGENCY PHYSICIAN Student in an Organized Health Care Education/Training Program; FAMILY PHYSICIAN Student in an Organized Health Care Education/Training Program
DX: I69.393 Ataxia following cerebral infarction (principal); I69.320 Aphasia following cerebral infarction; I65.21 Occlusion and stenosis of right carotid artery; I10 Essential (primary) hypertension; I25.10 Atherosclerotic heart disease of native coronary artery without angina pectoris; E74.39 Other disorders of intestinal carbohydrate absorption; E78.00 Pure hypercholesterolemia, unspecified; G93.89 Other specified disorders of brain; Z79.02 Long term (current) use of antithrombotics/antiplatelets; Z79.899 Other long term (current) drug therapy; Z87.891 Personal history of nicotine dependence
CPT/HCPCS: 70450; 70496; 70498; 70551; 80053; 80061; 82607; 82728; 83036; 83540; 84439; 84443; 85025; 85576; 92610; 93005; 97166; 99285; G0378; Q9967